=== PATIENT | male | born 1930 | race Caucasian/White ===

== ENCOUNTER 2017-01-22 13:43 | Inpatient (IN) | payer MEDICARE, BC ==
[2017-01-22] MEDS ORDERED: SODIUM CHLORIDE 0.9% 500 ML IV STA (14:22)
[2017-01-22] MEDS ORDERED: LIDOCAINE URO-JET JELLY 2% 5 ML KIT URETHRAL ONE ×2 (14:25→15:10)
--- NOTE | 2017-01-22 14:27 | ED ---
General Adult HPI - General Chief complaint: Urogenital Stated complaint: Rectal bleeding Time Seen by Provider: 01/22/17 14:13 Source: patient Mode of arrival: ambulatory Limitations: no limitations - History of Present Illness Initial comments: This is a 86-year-old male presents emergency Department with chief complaint of rectal bleeding and hematuria. Patient states that he has been incontinent of urine on and off over the last few months and states that he does have an upcoming appointment with his urologist this week. Patient states that he has a history of prostate cancer with treatment with radiation no surgery. Patient states he has had some issues with this stream and flow in the past. Patient states though he's never been incontinent like this. He states that he can go when he feels that he's ago but he has constant on and off dribbling throughout the day. Patient states that he noticed that he now has hematuria and states he passed a large clot when he urinated. Patient also states that he has rectal bleeding at this time patient states she's had rectal bleeding the past secondary to hemorrhoids states she's having no pain at this time. Patient states she does take stool softener/laxative daily states his stool has been slightly mucousy. Patient denies any fever, chills, nausea, vomiting. Patient does have some of suprapubic discomfort. He denies any dizziness, fatigue, chest pain or shortness of breath - Related Data Home Medications Medication Instructions Recorded Confirmed Acetaminophen [Tylenol] 500 mg PO Q4-6H PRN 01/22/17 01/22/17 Allopurinol [Zyloprim] 300 mg PO DAILY 01/22/17 01/22/17 Docusate [Colace] 100 mg PO DAILY PRN 01/22/17 01/22/17 Losartan Potassium [Cozaar] 100 mg PO DAILY 01/22/17 01/22/17 Metoprolol Tartrate [Lopressor] 50 mg PO HS 01/22/17 01/22/17 Metoprolol Tartrate [Lopressor] 100 mg PO DAILY 01/22/17 01/22/17 Naproxen Sodium [Aleve] 220 mg PO DAILY PRN 01/22/17 01/22/17 [place]-3 Fatty Acids/Fish Oil [Fish 1 cap PO DAILY 01/22/17 01/22/17 Oil 1,000 mg Capsule] Simvastatin [Zocor] 80 mg PO HS 01/22/17 01/22/17 Zolpidem [Ambien] 5 mg PO HS PRN 01/22/17 01/22/17 amLODIPine [Norvasc] 10 mg PO DAILY 01/22/17 01/22/17 Allergies Allergy/AdvReac Type Severity Reaction Status Date / Time Sulfa (Sulfonamide Allergy Rash/Hives Verified 01/22/17 15:00 Antibiotics) Review of Systems ROS Statement: Those systems with pertinent positive or pertinent negative responses have been documented in the HPI. ROS Other: All systems not noted in ROS Statement are negative. Past Medical History Past Medical History: Coronary Artery Disease (CAD), Hyperlipidemia, Hypertension Additional Past Medical History / Comment(s): GOUT History of Any Multi-Drug Resistant Organisms: None Reported Past Surgical History: Cardiac Valve Replacement, Joint Replacement Additional Past Surgical History / Comment(s): rt knee Past Psychological History: No Psychological Hx Reported Smoking Status: Never smoker Past Alcohol Use History: None Reported Past Drug Use History: None Reported General Exam Limitations: no limitations General appearance: alert, in no apparent distress Respiratory exam: Present: normal lung sounds bilaterally. Absent: respiratory distress, wheezes, rales, rhonchi, stridor Cardiovascular Exam: Present: regular rate, normal rhythm, normal heart sounds. Absent: systolic murmur, diastolic murmur, rubs, gallop, clicks GI/Abdominal exam: Present: soft, tenderness (Mild suprapubic tenderness), normal bowel sounds. Absent: distended, guarding, rebound, rigid Rectal exam: Present: heme (+) stool, bloody stool. Absent: hemorrhoids, tenderness Back exam: Absent: CVA tenderness (R), CVA tenderness (L) Neurological exam: Present: alert, oriented X3, CN II-XII intact Skin exam: Present: warm, dry, intact, normal color. Absent: rash Course Vital Signs 01/22/17 01/22/17 01/22/17 13:59 14:54 16:24 Temperature 97.9 F 97.5 F L Pulse Rate 92 83 75 Respiratory 20 18 18 Rate Blood Pressure 111/63 124/65 124/74 O2 Sat by Pulse 98 98 100 Oximetry Medical Decision Making - Lab Data Result diagrams: 01/22/17 14:35 01/22/17 14:35 Lab Results 01/22/17 01/22/17 01/22/17 Range/Units 14:35 14:35 14:35 WBC 8.8 (3.8-10.6) k/uL RBC 4.18 L (4.30-5.90) m/uL Hgb 12.8 L (13.0-17.5) gm/dL Hct 41.4 (39.0-53.0) % MCV 99.0 (80.0-100.0) fL MCH 30.7 (25.0-35.0) pg MCHC 31.0 (31.0-37.0) g/dL RDW 14.0 (11.5-15.5) % Plt Count 231 (150-450) k/uL Neutrophils % 68 % Lymphocytes % 18 % Monocytes % 9 % Eosinophils % 2 % Basophils % 1 % Neutrophils # 6.0 (1.3-7.7) k/uL Lymphocytes # 1.6 (1.0-4.8) k/uL Monocytes # 0.8 (0-1.0) k/uL Eosinophils # 0.2 (0-0.7) k/uL Basophils # 0.0 (0-0.2) k/uL Hypochromasia Slight PT (9.0-12.0) sec INR (<1.1) APTT (22.0-30.0) sec Sodium 141 (137-145) mmol/L Potassium 5.3 H (3.5-5.1) mmol/L Chloride 109 H (98-107) mmol/L Carbon Dioxide 17 L (22-30) mmol/L Anion Gap 15 mmol/L BUN 58 H (9-20) mg/dL Creatinine 4.17 H (0.66-1.25) mg/dL Est GFR (MDRD) Af Amer 17 (>60 ml/min/1.73 sqM) Est GFR (MDRD) Non-Af 14 (>60 ml/min/1.73 sqM) Glucose 113 H (74-99) mg/dL Calcium 9.7 (8.4-10.2) mg/dL Magnesium 2.5 H (1.6-2.3) mg/dL Total Bilirubin 0.9 (0.2-1.3) mg/dL AST 20 (17-59) U/L ALT 24 (21-72) U/L Alkaline Phosphatase 114 (38-126) U/L Total Creatine Kinase 98 (55-170) U/L CK-MB (CK-2) 2.2 (0.0-2.4) ng/mL CK-MB (CK-2) Rel Index 2.2 Troponin I 0.028 (0.000-0.034) ng/mL Total Protein 8.0 (6.3-8.2) g/dL Albumin 4.2 (3.5-5.0) g/dL Lipase 666 H (23-300) U/L Urine Color Urine Appearance (Clear) Urine pH (5.0-8.0) Ur Specific [place] (1.001-1.035) Urine Protein (Negative) Urine Glucose (UA) (Negative) Urine Ketones (Negative) Urine Blood (Negative) Urine Nitrite (Negative) Urine Bilirubin (Negative) Urine Urobilinogen (<2.0) mg/dL Ur Leukocyte Esterase (Negative) Urine RBC (0-5) /hpf Urine WBC (0-5) /hpf Urine WBC Clumps (None) /hpf Stool Occult Blood (Negative) Blood Type Blood Type Recheck Antibody Screen Spec Expiration Date 01/22/17 01/22/17 01/22/17 Range/Units 14:35 14:35 14:35 WBC (3.8-10.6) k/uL RBC (4.30-5.90) m/uL Hgb (13.0-17.5) gm/dL Hct (39.0-53.0) % MCV (80.0-100.0) fL MCH (25.0-35.0) pg MCHC (31.0-37.0) g/dL RDW (11.5-15.5) % Plt Count (150-450) k/uL Neutrophils % % Lymphocytes % % Monocytes % % Eosinophils % % Basophils % % Neutrophils # (1.3-7.7) k/uL Lymphocytes # (1.0-4.8) k/uL Monocytes # (0-1.0) k/uL Eosinophils # (0-0.7) k/uL Basophils # (0-0.2) k/uL Hypochromasia PT 11.2 (9.0-12.0) sec INR 1.1 (<1.1) APTT 23.5 (22.0-30.0) sec Sodium (137-145) mmol/L Potassium (3.5-5.1) mmol/L Chloride (98-107) mmol/L Carbon Dioxide (22-30) mmol/L Anion Gap mmol/L BUN (9-20) mg/dL Creatinine (0.66-1.25) mg/dL Est GFR (MDRD) Af Amer (>60 ml/min/1.73 sqM) Est GFR (MDRD) Non-Af (>60 ml/min/1.73 sqM) Glucose (74-99) mg/dL Calcium (8.4-10.2) mg/dL Magnesium (1.6-2.3) mg/dL Total Bilirubin (0.2-1.3) mg/dL AST (17-59) U/L ALT (21-72) U/L Alkaline Phosphatase (38-126) U/L Total Creatine Kinase (55-170) U/L CK-MB (CK-2) (0.0-2.4) ng/mL CK-MB (CK-2) Rel Index Troponin I (0.000-0.034) ng/mL Total Protein (6.3-8.2) g/dL Albumin (3.5-5.0) g/dL Lipase (23-300) U/L Urine Color Urine Appearance (Clear) Urine pH (5.0-8.0) Ur Specific [place] (1.001-1.035) Urine Protein (Negative) Urine Glucose (UA) (Negative) Urine Ketones (Negative) Urine Blood (Negative) Urine Nitrite (Negative) Urine Bilirubin (Negative) Urine Urobilinogen (<2.0) mg/dL Ur Leukocyte Esterase (Negative) Urine RBC (0-5) /hpf Urine WBC (0-5) /hpf Urine WBC Clumps (None) /hpf Stool Occult Blood Positive (Negative) Blood Type A Positive Blood Type Recheck A Pos Antibody Screen NEGATIVE Spec Expiration Date 01/25/2017233401/22/17 Range/Units 15:30 WBC (3.8-10.6) k/uL RBC (4.30-5.90) m/uL Hgb (13.0-17.5) gm/dL Hct (39.0-53.0) % MCV (80.0-100.0) fL MCH (25.0-35.0) pg MCHC (31.0-37.0) g/dL RDW (11.5-15.5) % Plt Count (150-450) k/uL Neutrophils % % Lymphocytes % % Monocytes % % Eosinophils % % Basophils % % Neutrophils # (1.3-7.7) k/uL Lymphocytes # (1.0-4.8) k/uL Monocytes # (0-1.0) k/uL Eosinophils # (0-0.7) k/uL Basophils # (0-0.2) k/uL Hypochromasia PT (9.0-12.0) sec INR (<1.1) APTT (22.0-30.0) sec Sodium (137-145) mmol/L Potassium (3.5-5.1) mmol/L Chloride (98-107) mmol/L Carbon Dioxide (22-30) mmol/L Anion Gap mmol/L BUN (9-20) mg/dL Creatinine (0.66-1.25) mg/dL Est GFR (MDRD) Af Amer (>60 ml/min/1.73 sqM) Est GFR (MDRD) Non-Af (>60 ml/min/1.73 sqM) Glucose (74-99) mg/dL Calcium (8.4-10.2) mg/dL Magnesium (1.6-2.3) mg/dL Total Bilirubin (0.2-1.3) mg/dL AST (17-59) U/L ALT (21-72) U/L Alkaline Phosphatase (38-126) U/L Total Creatine Kinase (55-170) U/L CK-MB (CK-2) (0.0-2.4) ng/mL CK-MB (CK-2) Rel Index Troponin I (0.000-0.034) ng/mL Total Protein (6.3-8.2) g/dL Albumin (3.5-5.0) g/dL Lipase (23-300) U/L Urine Color Red Urine Appearance Turbid (Clear) Urine pH 7.5 (5.0-8.0) Ur Specific [place] 1.015 (1.001-1.035) Urine Protein 2+ H (Negative) Urine Glucose (UA) Negative (Negative) Urine Ketones Negative (Negative) Urine Blood Large H (Negative) Urine Nitrite Negative (Negative) Urine Bilirubin Negative (Negative) Urine Urobilinogen <2.0 (<2.0) mg/dL Ur Leukocyte Esterase Large H (Negative) Urine RBC >182 H (0-5) /hpf Urine WBC >182 H (0-5) /hpf Urine WBC Clumps Many H (None) /hpf Stool Occult Blood (Negative) Blood Type Blood Type Recheck Antibody Screen Spec Expiration Date Disposition Clinical Impression: UTI (urinary tract infection), Rectal bleeding, Renal failure, Acute pancreatitis, Dehydration Disposition: ADMITTED IP TO THIS HOSP Condition: Fair Referrals: Sharan Sims DO [Primary Care Provider] - 1-2 days
[2017-01-22 15:14] LABS: Basophils % (A) 1 %; CH 30.5; Eosinophils # (A) 0.2 k/uL (0-0.7); Eosinophils % (A) 2 %; HCT 41.4 % (39.0-53.0); HDW 2.31; HGB 12.8 gm/dL (13.0-17.5); Hypochromasia Slight; Luc # (Auto) 0.22; Luc % (Auto) 3; Lymphocytes # (A) 1.6 k/uL (1.0-4.8); Lymphocytes % (A) 18 %; MCH 30.7 pg (25.0-35.0); Mean Platelet Volume 7.6; Monocytes # (A) 0.8 k/uL (0-1.0); Monocytes % (A) 9 %; Neutrophils % (A) 68 %; RBC 4.18 m/uL (4.30-5.90); WBC 8.8 k/uL (3.8-10.6); WBC (Perox) 8.95
[2017-01-22 15:18] LABS: INR 1.1 (<1.1); Partial Thromboplastin Time 23.5 sec (22.0-30.0); Prothrombin Time 11.2 sec (9.0-12.0)
[2017-01-22 15:19] LABS: Calcium 9.7 mg/dL (8.4-10.2); Magnesium 2.5 mg/dL (1.6-2.3); Potassium 5.3 mmol/L (3.5-5.1); Total Bilirubin 0.9 mg/dL (0.2-1.3)
[2017-01-22 15:43] LABS: Creatine Kinase MB 2.2 ng/mL (0.0-2.4); Troponin I 0.028 ng/mL (0.000-0.034)
[2017-01-22 15:57] LABS: Appearance,Urine Turbid (Clear); Bilirubin,Urine Negative (Negative); Glucose,Urine (UA) Negative (Negative); Ketones,Urine Negative (Negative); Leukocyte Esterase,Urine Large (Negative); Nitrite,Urine Negative (Negative); PH, Urine 7.5 (5.0-8.0); Particle Count 68063; Protein,Urine 2+ (Negative); RBC,Urine >182 /hpf (0-5); Specific Gravity,Urine 1.015 (1.001-1.035); UA Billing (MACRO vs. MICRO) MICRO; Urobilinogen,Urine <2.0 mg/dL (<2.0); WBC,Urine >182 /hpf (0-5)
[2017-01-22] MEDS ORDERED: ONDANSETRON 4 MG/2 ML VIAL IVP PRN (16:40)
[2017-01-22] MEDS ORDERED: NALOXONE 0.4 MG/ML 1 ML VIAL IV PRN (16:40)
[2017-01-22] MEDS: SODIUM CHLORIDE 0.9% 1,000 ML IV SCH (16:58)
[2017-01-22 18:33] VITALS: BMI 23.3
[2017-01-22] MEDS ORDERED: ACETAMINOPHEN TAB 500 MG TAB PO PRN (18:37)
[2017-01-22] MEDS ORDERED: DOCUSATE 100 MG CAP PO PRN (18:37)
[2017-01-22] MEDS ORDERED: ALPRAZolam 0.25 MG TAB PO PRN (18:39)
--- NOTE | 2017-01-22 18:52 | XR ---
EXAMINATION TYPE: XR chest 1V portable DATE OF EXAM: 01/22/2017 COMPARISON: NONE HISTORY: Heart failure TECHNIQUE: Single frontal view of the chest is obtained. FINDINGS: Heart size is normal. Thoracic aorta is atheromatous. There are are sternal wires. There i s no heart failure. I see no definite pleural effusion. There are no hilar masses. Bony thorax appear s intact. IMPRESSION: Atheromatous aorta. No active cardiopulmonary disease. Minimal pulmonary fibrotic change s. No heart failure seen.
--- NOTE | 2017-01-22 19:38 | CT ---
EXAMINATION TYPE: CT abdomen pelvis wo con DATE OF EXAM: 01/22/2017 COMPARISON: 01/13/2014 HISTORY: Rectal bleeding and hematuria. CT DLP: 532.2 mGycm Automated exposure control for dose reduction was used. TECHNIQUE: Helical acquisition of images was performed from the lung bases through the pelvis. FINDINGS: There is patchy linear density at the lung bases consistent with scarring and atelectasis. There is n o pleural effusion. Heart appears enlarged. Liver shows no focal defect. Gallbladder appears normal. Spleen appears normal. There is vascular calcification. There is no sign of pancreatic mass. There is no adrenal mass. There is a 3 cm cortical cyst on the anterior right kidney. There is no hyd ronephrosis. There is a calcification in the interpolar left kidney that is probably vascular. Ureter s are not dilated. Abdominal aorta is atheromatous. There is no evidence of an aortic aneurysm. There is distended urinary bladder with mild bladder wall thickening. There is no ascites. I see no intest inal wall thickening. There are no dilated loops. There is no sign of appendicitis. There is multilev el spondylosis in the lumbar spine with dextroscoliosis. IMPRESSION: ATHEROSCLEROTIC VASCULAR DISEASE. CARDIOMEGALY. FIBROTIC CHANGES AT THE LUNG BASES. LARGE URINARY BLADDER WITH MILD BLADDER WALL THICKENING CONSISTENT WITH SOME DEGREE OF BLADDER OUTLET OBSTRUCTION AND BLADDER WALL HYPERTROPHY. NO ADVERSE CHANGE COMPARED TO THE CT SCAN OF THE ABDOMEN OF 01/13/2014. MODERATE MULTILEVEL SPONDYLOSI S IN THE LUMBAR SPINE.
[2017-01-22] MEDS: ATORVASTATIN 40 MG TAB PO SCH (20:54)
[2017-01-22] MEDS: METOPROLOL TARTRATE 50 MG TAB PO SCH (20:54)
[2017-01-22] MEDS ORDERED: TEMAZEPAM 15 MG CAP PO PRN (21:00)
[2017-01-22] MEDS: TEMAZEPAM 15 MG CAP PO PRN (23:30)
[2017-01-23 06:55] LABS: Basophils % (A) 0 %; CH 30.2; CHCM 31.1; Eosinophils # (A) 0.2 k/uL (0-0.7); Eosinophils % (A) 3 %; HCT 40.4 % (39.0-53.0); HDW 2.32; HGB 13.2 gm/dL (13.0-17.5); Hypochromasia Slight; Luc # (Auto) 0.28; Luc % (Auto) 4; Lymphocytes # (A) 1.5 k/uL (1.0-4.8); Lymphocytes % (A) 21 %; MCH 31.8 pg (25.0-35.0); MCHC 32.6 g/dL (31.0-37.0); MCV 97.8 fL (80.0-100.0); Mean Platelet Volume 7.2; Monocytes # (A) 0.7 k/uL (0-1.0); Monocytes % (A) 10 %; Neutrophils # (A) 4.2 k/uL (1.3-7.7); Neutrophils % (A) 61 %; RBC 4.13 m/uL (4.30-5.90); RDW 13.9 % (11.5-15.5); WBC 6.8 k/uL (3.8-10.6); WBC (Perox) 7.44
[2017-01-23 07:10] LABS: Calcium 9.5 mg/dL (8.4-10.2)
[2017-01-23] MEDS: PANTOPRAZOLE 40 MG TABLET PO SCH (07:23)
[2017-01-23] MEDS: METOPROLOL TARTRATE 50 MG TAB PO SCH ×2 (07:24→21:48)
[2017-01-23] MEDS: SODIUM CHLORIDE 0.9% 1,000 ML IV SCH ×2 (07:39→15:24)
--- NOTE | 2017-01-23 07:52 | HP ---
DATE OF ADMISSION: CHIEF COMPLAINT: Hematuria, weakness, dehydration. HISTORY OF PRESENT ILLNESS: This 86-year-old gentleman with a past medical history of multiple medical problems including history of coronary artery disease, hypertension, hyperlipidemia, history of gout, history of prostate cancer, history of cardiac valve replacement, history of degenerative joint disease being followed by [facility] and Dr. Sims in the outpatient setting was not feeling well over the past several days. Patient apparently had hematuria earlier and the patient was trying to get to Urology. Patient apparently also noted to have some blood in the stools and the patient also had complaints of incontinence, weakness. The patient also found to pass a large clot while urinating. The patient's p.o. intake was diminishing and patient came to [facility] and was admitted for further evaluation and treatment. Creatinine was found to be 4.17 indicating acute renal failure. The patient also has elevated lipase even though the patient did not have any abdominal pain. The patient also had evidence of UTI also. There is no history of any fever, rigors, chills, headache, loss of consciousness, seizures. PAST MEDICAL HISTORY: History of CAD, hypertension, hyperlipidemia, gout, prostate cancer, history of hematuria, history of cardiac valve replacement, appendectomy. Aortic valve surgery. Medications prior to admission include: 1. Ambien 5 mg q.6. 2. Zocor 81 mg q.h.s. 3. Fish oil 1 p.o. daily. 5. Colace 100 mg daily p.r.n. 6. Tylenol 500 mg q.4 to 6 p.r.n. 7. Norvasc 10 mg daily. 8. Lopressor 50 mg q.6. 9. Cozaar 100 mg p.o. daily. 10. Zyloprim 300 mg daily. ALLERGIES: SULFA. FAMILY HISTORY: No history of heart disease or strokes in the family. SOCIAL HISTORY: No history of smoking. No history of alcohol. REVIEW OF SYSTEMS: ENT: Diminished hearing. Diminished vision. CARDIOVASCULAR: As mentioned earlier. RESPIRATORY: As mentioned earlier. GI: As mentioned earlier. : As mentioned earlier. NERVOUS SYSTEM: No numbness or weakness. ALLERGY/IMMUNOLOGY: No asthma. MUSCULOSKELETAL: As mentioned earlier. HEMATOLOGY: As mentioned earlier. ENDOCRINE: : no history of diabetes or hypothyroidism. CONSTITUTIONAL: As mentioned earlier. DERMATOLOGY: Negative. RHEUMATOLOGY: Negative. PSYCHIATRY: As mentioned earlier. PHYSICAL EXAMINATION: Patient is alert and oriented x3. Pulse is 75, blood pressure 124/75, respirations 18, temperature 97.4, pulse ox 100% on room air. HEENT: Conjunctivae normal. Oral mucosa moist. NECK: NO jugular venous distention. No carotid bruit. No lymph node enlargement. CARDIOVASCULAR: S1 and S2, muffled. RESPIRATORY: Breath sounds diminished at the bases. A few scattered rhonchi, no crackles. ABDOMEN: Soft, nontender. No mass palpable. LEGS: No edema, no swelling. NERVOUS SYSTEM: Higher function as mentioned. Moves all four limbs. No focal motor deficits. LYMPHATIC: No lymphadenopathy in the neck, axillae or groin. SKIN: No ulcer, rash or bleeding. LABS: WBC 8.2, hemoglobin 12.8. Creatinine is 4.17. Lipase is 666. UA noted. Other labs noted. ASSESSMENT: 1. Acute renal failure, rule out postobstructive renal failure. 2. Hematuria for evaluation. 3. Possible dehydration and prerenal renal factors. 4. Increased lipase, rule out acute pancreatitis. 5. Hyperkalemia, mild. 6. Anemia, normocytic anemia of chronic disease. 7. History of aortic valve replacement. 8. History of coronary artery disease. 9. Hypertension. 10. Hyperlipidemia. 11. History of gout. 12. History of prostate cancer. 13. History of appendectomy. 14. History of degenerative joint disease. 15. History of prostate surgery. 16. Right knee surgery. 17. FULL CODE. RECOMMENDATIONS AND DISCUSSION: In this 86-year-old gentleman who presented with multiple complex medical issues, we will monitor the patient closely. I would carefully hydrate the patient. Obtain a CT scan of the abdomen and pelvis without any contrast for evaluation of the pancreas as well as rule out the possible postobstructive renal failure. Nephrology was consulted. Would continue to monitor. Guarded prognosis because of multiple complex medical issues. Further recommendations to follow. See orders for details. Empiric antibiotics initiated. Home medications continued. PT, OT evaluation. MTDD
[2017-01-23] MEDS ORDERED: amLODIPine 10 MG TAB PO SCH (09:00)
--- NOTE | 2017-01-23 11:37 | P.NPCON ---
History of Present Illness - Reason for Consult acute renal failure - History of Present Illness Reason for consultation: Acute kidney injury History of present illness: Patient is a 86-year-old male seen in renal consultation for acute kidney injury. Unclear as to what his baseline renal function is. Creatinine was 4.17 on admission and is down to 3.3 today. He is currently maintained on IV fluids running at 75 mL an hour. Patient presented to the hospital with generalized weakness. He also noted hematuria as well as a blood clot in his urine. Patient states his appetite has been poor the last few days. He denies any vomiting or diarrhea. Patient does have a history of prostate cancer and follows with urology as an outpatient. He had an appointment scheduled for this Monday. CT of the abdomen and pelvis did not reveal any hydronephrosis. Patient does admit to taking Aleve as needed. States he took it about 5 times in the last 2 weeks. Denies chest pain or shortness of breath. Hemodynamically he's been stable. Blood pressures are on the lower side. Denies dizziness headaches or syncopal episodes. No fever or chills. Vital signs are stable. General: The patient appeared well nourished and normally developed. HEENT: Head exam is unremarkable. Neck is without jugular venous distension. LUNGS: Lungs are clear to auscultation and percussion. Breath sounds decreased. HEART: Rate and Rhythm are regular. First and second heart sounds normal. No murmurs, rubs or gallops. ABDOMEN: Abdominal exam reveals normal bowel sounds. Non-tender and non- distended. No evidence of peritonitis. EXTREMITITES: No clubbing, cyanosis, or edema. Past Medical History Past Medical History: Coronary Artery Disease (CAD), Hyperlipidemia, Hypertension Additional Past Medical History / Comment(s): GOUT, Prostate Cancer. 01/22 pt comes in with hematuria and blood in stool. History of Any Multi-Drug Resistant Organisms: None Reported Past Surgical History: Appendectomy, Cardiac Valve Replacement, Joint Replacement, Prostate Surgery Additional Past Surgical History / Comment(s): rt knee Past Anesthesia/Blood Transfusion Reactions: No Reported Reaction Past Psychological History: No Psychological Hx Reported Smoking Status: Never smoker Past Alcohol Use History: None Reported Additional Past Alcohol Use History / Comment(s): pt states he has a drink every 3-4 weeks. Past Drug Use History: None Reported - Past Family History Mother Family Medical History: No Reported History Medications and Allergies Home Medications Medication Instructions Recorded Confirmed Type Acetaminophen [Tylenol] 500 mg PO Q4-6H PRN 01/22/17 01/22/17 History Allopurinol [Zyloprim] 300 mg PO DAILY 01/22/17 01/22/17 History Docusate [Colace] 100 mg PO DAILY PRN 01/22/17 01/22/17 History Losartan Potassium [Cozaar] 100 mg PO DAILY 01/22/17 01/22/17 History Metoprolol Tartrate [Lopressor] 50 mg PO HS 01/22/17 01/22/17 History Metoprolol Tartrate [Lopressor] 100 mg PO DAILY 01/22/17 01/22/17 History Naproxen Sodium [Aleve] 220 mg PO DAILY PRN 01/22/17 01/22/17 History [place]-3 Fatty Acids/Fish Oil [Fish 1 cap PO DAILY 01/22/17 01/22/17 History Oil 1,000 mg Capsule] Simvastatin [Zocor] 80 mg PO HS 01/22/17 01/22/17 History Zolpidem [Ambien] 5 mg PO HS PRN 01/22/17 01/22/17 History amLODIPine [Norvasc] 10 mg PO DAILY 01/22/17 01/22/17 History Allergies Allergy/AdvReac Type Severity Reaction Status Date / Time Sulfa (Sulfonamide Allergy Rash/Hives Verified 01/22/17 15:00 Antibiotics) Physical Exam Vitals: Vital Signs Temp Pulse Pulse Resp BP BP Pulse Ox 01/23/17 07:00 97.7 F 87 16 114/61 97 01/22/17 23:00 97.4 F L 83 16 109/57 98 01/22/17 17:33 97.9 F 80 18 117/56 94 L 01/22/17 16:24 97.5 F L 75 18 124/74 100 01/22/17 14:54 83 18 124/65 98 01/22/17 13:59 97.9 F 92 20 111/63 98 Intake and Output 01/22/17 01/23/17 01/23/17 22:59 06:59 14:59 Intake Total 225 600 Balance 225 600 Intake: IV 225 600 Sodium Chloride 0.9% 1, 225 600 000 ml @ 75 mls/hr IV . [id number] [facility] Rx#:[id number] Other: Voiding Method Toilet Incontinent # Voids 2 2 Weight 75.75 kg 75.75 kg Patient Weight 01/24/17 06:59 Weight 75.75 kg Results - Lab Results Most recent lab results Calcium 9.5 mg/dL (8.4-10.2) 01/23/17 06:25 Magnesium 2.5 mg/dL (1.6-2.3) H 01/22/17 14:35 01/23/17 06:25 01/23/17 06:25 Assessment and Plan Plan: Assessment: #1. Nonoliguric acute kidney injury mostly prerenal in nature secondary to poor oral intake and use of NSAIDs and ARB. No evidence of hydronephrosis on CT of the abdomen/pelvis. Unclear as to what his baseline renal function is. Creatinine was 4.17 on admission and is down to 3.3 today with IV hydration. Rule out urinary retention. #2. Metabolic acidosis secondary to acute kidney injury and IV fluids. #3. Hematuria. This can be related to the UTI as well as a bladder wall thickening noted on CAT scan of the abdomen and pelvis. #4. Hypertension. Blood pressures are on the lower end. Plan: Continue normal saline to be run at 75 mL an hour. Start sodium bicarbonate 650 mg twice daily. Add Flomax. Check postvoid residual and to insert Marcus catheter if greater than 250 mL present. Recommend urology consultation. Follow-up urine culture. Avoid nephrotoxic agents and hypotensive episodes. Repeat electrolytes in the morning. Thank you for the consultation. I will continue to follow the patient with you during his hospital stay.
[2017-01-23] MEDS: SODIUM BICARBONATE TAB 650 MG TAB PO SCH ×2 (13:07→21:48)
[2017-01-23] MEDS: TAMSULOSIN 0.4 MG CAP.ER.24H PO SCH (13:08)
--- NOTE | 2017-01-23 18:54 | PN ---
DATE OF SERVICE: 01/23/2017 This 86-year-old gentleman who was admitted with acute renal failure also had hematuria. The patient had significant dehydration also. The patient also had abdomen and pelvis CT scan yesterday. The CAT scan showed atherosclerotic vascular disease, cardiomegaly, fibroids in the lung base, and large urinary bladder with mild bladder wall thickening consistent with some degree of bladder outlet obstruction and bladder wall hypertrophy, multilevel DJD was also noted. PAST MEDICAL HISTORY: Reviewed. REVIEW OF SYSTEMS: CARDIOVASCULAR: No angina. RESPIRATORY: As mentioned earlier. GI: As mentioned earlier. : As mentioned earlier. Current medications include: 1. Tylenol 500 q.4 p.r.n. 2. [place] 5 mg q.6. 3. Xanax 0.5 t.i.d. p.r.n. 4. Lipitor 40 mg. 5. Rocephin 1 gram IV daily. 6. Colace 100 mg daily p.r.n. 7. Lopressor 50 mg q.h.s. 8. Lopressor 100 mg p.o. daily. 9. Narcan 0.2 q.2 p.r.n. 10. Zofran 4 mg q.8 p.r.n. 11. Protonix 40 mg daily. 12. Sodium bicarb 650 p.o. b.i.d. 13. Flomax 0.4 daily. 14. Restoril 15 mg q.h.s. p.r.n. 15. Ambien 5 mg q.h.s. p.r.n. PHYSICAL EXAMINATION: Patient is alert and oriented x3. Pulse 83, blood pressure 199/57, respirations 16, temperature 97.4, pulse ox 98% on room air. HEENT: Conjunctivae normal. Oral mucosa moist. NECK: No jugular venous distention. No carotid bruit. No lymph node enlargement. CARDIOVASCULAR: S1 and S2, muffled. No S3, no S4. RESPIRATORY: Breath sounds diminished at the bases. A few scattered rhonchi, no crackles. ABDOMEN: Soft, nontender. No mass palpable. No guarding. no rigidity. LEGS: No edema. NERVOUS SYSTEM: Diffusely weak. LABS: WBC 6.7, hemoglobin 13.2, CO2 is 18. Creatinine is 3.30. Amylase 133, lipase 739, UA noted. ASSESSMENT: 1. Acute renal failure, possibly postobstructive renal failure with some prerenal factors. 2. Hematuria for evaluation rule out bladder outlet obstruction. 3. Urinary tract infection, possibly. 4. Dehydration with prerenal factors. 5. Increased lipase, amylase, possible acute mild pancreatitis. 6. Mild hyperkalemia. 7. Anemia, normocytic anemia of chronic disease. 8. History of aortic valve replacement. 9. History of coronary artery disease. 10. History of essential hypertension. 11. History of hyperlipidemia. 12. History of gout. 13. History of prostate cancer. 14. History of appendectomy. 15. History of degenerative joint disease. 16. History of prostate surgery. 17. History of right knee surgery. 18. FULL CODE. RECOMMENDATIONS AND DISCUSSION: I recommend to continue the current medications, continue monitoring and symptomatic treatment. Continue with the broad-spectrum IV antibiotics. Careful hydration. Nephrology has been consulted. Further recommendations to follow. See orders for further details. Prognosis guarded.
[2017-01-23] MEDS: ATORVASTATIN 40 MG TAB PO SCH (21:48)
[2017-01-23] MEDS: ZOLPIDEM 5 MG TAB PO PRN (22:42)
[2017-01-24 07:25] LABS: Basophils % (A) 1 %; CH 30.5; CHCM 31.1; Eosinophils # (A) 0.3 k/uL (0-0.7); Eosinophils % (A) 6 %; HCT 36.4 % (39.0-53.0); HDW 2.28; HGB 11.7 gm/dL (13.0-17.5); Luc # (Auto) 0.21; Luc % (Auto) 4; Lymphocytes # (A) 1.4 k/uL (1.0-4.8); Lymphocytes % (A) 26 %; MCH 31.8 pg (25.0-35.0); MCHC 32.3 g/dL (31.0-37.0); MCV 98.6 fL (80.0-100.0); Mean Platelet Volume 7.2; Monocytes # (A) 0.5 k/uL (0-1.0); Monocytes % (A) 9 %; Neutrophils # (A) 2.9 k/uL (1.3-7.7); Neutrophils % (A) 54 %; RBC 3.68 m/uL (4.30-5.90); RDW 14.1 % (11.5-15.5); WBC 5.3 k/uL (3.8-10.6); WBC (Perox) 5.61
[2017-01-24 07:45] LABS: Potassium 4.5 mmol/L (3.5-5.1)
[2017-01-24] MEDS: TAMSULOSIN 0.4 MG CAP.ER.24H PO SCH (07:45)
[2017-01-24] MEDS: SODIUM BICARBONATE TAB 650 MG TAB PO SCH ×2 (07:45→20:58)
[2017-01-24] MEDS: PANTOPRAZOLE 40 MG TABLET PO SCH (07:45)
[2017-01-24] MEDS: METOPROLOL TARTRATE 50 MG TAB PO SCH ×2 (07:45→20:58)
[2017-01-24] MEDS: SODIUM CHLORIDE 0.9% 1,000 ML IV SCH (07:46)
[2017-01-24] MEDS ORDERED: LIDOCAINE URO-JET JELLY 2% 5 ML KIT URETHRAL STA (09:05)
[2017-01-24] MEDS ORDERED: FUROSEMIDE 10 MG/ML 2 ML VIAL IV STA (10:14)
--- NOTE | 2017-01-24 10:17 | P.PCN ---
Date of Procedure: 01/24/17 Preoperative Diagnosis: Urethral Stricture, Urinary Retention Postoperative Diagnosis: Same Procedure(s) Performed: Urethral Dilation, Marcus Catheter Insertion Implants: Anesthesia: local Surgeon: Orlando Pro Estimated Blood Loss (ml): 10 Pathology: none sent Condition: stable Disposition: PACU Indications for Procedure: The patient is an 86-year-old white male with known urethral stricture disease. A computed tomography scan suggested the presence of urinary retention. Attempts by the nursing staff to place a Marcus catheter were unsuccessful. Operative Findings: Bulbous urethral stricture, successfully dilated. Description of Procedure: The patient is lying supine in his hospital bed. The external genitalia was prepped and draped sterilely. 2% lidocaine jelly was administered intraurethrally. A 3-[place] spiral tip filiform was then passed through the urethra and into the bladder. Successive followers were utilized to dilate the urethra to 20-[place]. With some difficulty, a 16-[place] Marcus catheter was then placed. The return was initially jose r in color, but turned bright red. Approximately 475 mL of urine drained. The Marcus catheter was then irrigated. Several small clots were removed. The bladder was verified to be empty. The catheter was connected to gravity drainage.
[2017-01-24] MEDS: HYDROcodone/APAP 5-325MG 1 EACH TAB PO PRN ×2 (10:18→15:35)
--- NOTE | 2017-01-24 10:19 | P.GSCN ---
History of Present Illness Consult date: 01/24/17 Reason for Consult: Urinary Retention Requesting physician: Ari Gasca History of present illness: The patient is an 86-year-old white male well known to me. He has a history of urethral stricture disease, for which he has undergone urethral dilation on multiple occasions, most recently in 2004. He was diagnosed with clinical stage [id number] prostate cancer in late 1999. His PSA level at that time was 17.40. He was treated with androgen deprivation therapy (x 9 months) plus radiation therapy. He has not been seen since 2004. He is now admitted with a three-week history of gross hematuria. He reports minimal dysuria, which she has experienced since he received radiation therapy. He has also recently experienced urinary incontinence. He states that his most recent PSA level was 0.1. Review of Systems - Respiratory Denies dyspnea - Gastrointestinal Gastrointestinal Comment(s): Rectal bleeding - Genitourinary Reports dysuria, Reports hematuria, Reports incontinence Past Medical History Past Medical History: Coronary Artery Disease (CAD), Hyperlipidemia, Hypertension Additional Past Medical History / Comment(s): GOUT, Prostate Cancer. 01/22 pt comes in with hematuria and blood in stool. History of Any Multi-Drug Resistant Organisms: None Reported Past Surgical History: Appendectomy, Cardiac Valve Replacement, Joint Replacement, Prostate Surgery Additional Past Surgical History / Comment(s): rt knee Past Anesthesia/Blood Transfusion Reactions: No Reported Reaction Past Psychological History: No Psychological Hx Reported Smoking Status: Never smoker Past Alcohol Use History: None Reported Additional Past Alcohol Use History / Comment(s): pt states he has a drink every 3-4 weeks. Past Drug Use History: None Reported - Past Family History Mother Family Medical History: No Reported History Medications and Allergies Home Medications Medication Instructions Recorded Confirmed Type Acetaminophen [Tylenol] 500 mg PO Q4-6H PRN 01/22/17 01/22/17 History Allopurinol [Zyloprim] 300 mg PO DAILY 01/22/17 01/22/17 History Docusate [Colace] 100 mg PO DAILY PRN 01/22/17 01/22/17 History Losartan Potassium [Cozaar] 100 mg PO DAILY 01/22/17 01/22/17 History Metoprolol Tartrate [Lopressor] 50 mg PO HS 01/22/17 01/22/17 History Metoprolol Tartrate [Lopressor] 100 mg PO DAILY 01/22/17 01/22/17 History Naproxen Sodium [Aleve] 220 mg PO DAILY PRN 01/22/17 01/22/17 History [place]-3 Fatty Acids/Fish Oil [Fish 1 cap PO DAILY 01/22/17 01/22/17 History Oil 1,000 mg Capsule] Simvastatin [Zocor] 80 mg PO HS 01/22/17 01/22/17 History Zolpidem [Ambien] 5 mg PO HS PRN 01/22/17 01/22/17 History amLODIPine [Norvasc] 10 mg PO DAILY 01/22/17 01/22/17 History Allergies Allergy/AdvReac Type Severity Reaction Status Date / Time Sulfa (Sulfonamide Allergy Rash/Hives Verified 01/22/17 15:00 Antibiotics) Surgical - Exam Vital Signs Temp Pulse Resp BP Pulse Ox 97.9 F 92 20 111/63 98 01/22/17 13:59 01/22/17 13:59 01/22/17 13:59 01/22/17 13:59 01/22/17 13:59 - General well developed, well nourished, no distress - Abdomen Abdomen: soft, rigid, rebound, distended, non tender, tender, bowel sounds, organomegaly, surgical scars, wound, masses, guarding Hernia: none - Genitourinary normal penis with no external lesions, testicles non-tender - Rectum Rectum: normal sphincter tone, no masses, no bleeding, other (prostate firm, flat, smooth) - Neurologic no disoriented, no combative - Psychiatric oriented to time, oriented to person, oriented to place, speech is normal, memory intact Results - Labs 01/24/17 06:48 01/24/17 06:48 Abnormal Lab Results - Last 24 Hours (Table) 01/23/17 01/23/17 Range/Units 06:25 06:25 RBC 4.13 L (4.30-5.90) m/uL Chloride 111 H (98-107) mmol/L Carbon Dioxide 18 L (22-30) mmol/L BUN 46 H (9-20) mg/dL Creatinine 3.30 H (0.66-1.25) mg/dL Glucose 101 H (74-99) mg/dL Amylase 163 H (30-110) U/L Lipase 739 H (23-300) U/L Microbiology - Last 24 Hours (Table) 01/22/17 15:30 Urine Culture - Final Urine,Voided Aerococcus urinae Diabetes panel 01/23/17 Range/Units 06:25 Sodium 141 (137-145) mmol/L Potassium 5.0 (3.5-5.1) mmol/L Chloride 111 H (98-107) mmol/L Carbon Dioxide 18 L (22-30) mmol/L BUN 46 H (9-20) mg/dL Creatinine 3.30 H (0.66-1.25) mg/dL Glucose 101 H (74-99) mg/dL Calcium 9.5 (8.4-10.2) mg/dL Calcium panel 01/23/17 Range/Units 06:25 Calcium 9.5 (8.4-10.2) mg/dL Pituitary panel 01/23/17 Range/Units 06:25 Sodium 141 (137-145) mmol/L Potassium 5.0 (3.5-5.1) mmol/L Chloride 111 H (98-107) mmol/L Carbon Dioxide 18 L (22-30) mmol/L BUN 46 H (9-20) mg/dL Creatinine 3.30 H (0.66-1.25) mg/dL Glucose 101 H (74-99) mg/dL Calcium 9.5 (8.4-10.2) mg/dL Adrenal panel 01/23/17 Range/Units 06:25 Sodium 141 (137-145) mmol/L Potassium 5.0 (3.5-5.1) mmol/L Chloride 111 H (98-107) mmol/L Carbon Dioxide 18 L (22-30) mmol/L BUN 46 H (9-20) mg/dL Creatinine 3.30 H (0.66-1.25) mg/dL Glucose 101 H (74-99) mg/dL Calcium 9.5 (8.4-10.2) mg/dL - Imaging CT scan - abdomen: report reviewed, image reviewed Assessment and Plan (1) Gross hematuria Status: Acute (2) Urethral stricture, unspecified Status: Acute Plan: The urethral stricture was dilated, and a Marcus catheter was placed. Approximately 475 mL of urine was drained from the bladder, and the urine became bloody as the Marcus drained. Lasix was given to induce diuresis, and the catheter will be irrigated as needed. This is not unexpected following decompression of the bladder in the face of urinary retention. I anticipate that the urine will clear, in which case Mr. Larios can be discharged home with the Marcus catheter. The catheter will be removed later this week. Time with Patient: Greater than 30
--- NOTE | 2017-01-24 10:29 | P.PN ---
Subjective Patient is seen in follow-up for acute kidney injury. Unclear as to what his baseline renal function is. Creatinine was 4.17 on admission and is improving with IV fluids. It is down to 2.7 today. She is also noted to have hematuria and is being followed by urology. He had a Marcus catheter placed. He is nonoliguric. Oral intake is improving. No vomiting or diarrhea. Also noted to have a UTI. Urine culture positive for Aerococcus. Vital signs are stable. General: The patient appeared well nourished and normally developed. HEENT: Head exam is unremarkable. Neck is without jugular venous distension. LUNGS: Lungs are clear to auscultation and percussion. Breath sounds decreased. HEART: Rate and Rhythm are regular. First and second heart sounds normal. No murmurs, rubs or gallops. ABDOMEN: Abdominal exam reveals normal bowel sounds. Non-tender and non- distended. No evidence of peritonitis. EXTREMITITES: No clubbing, cyanosis, or edema. Objective - Vital Signs Vital signs: Vital Signs Temp 97.4 F L 01/24/17 07:00 Pulse 86 01/24/17 07:51 Resp 16 01/24/17 07:51 BP 120/75 01/24/17 07:00 Pulse Ox 98 01/24/17 07:00 Intake & Output 01/23/17 01/24/17 01/24/17 18:59 06:59 18:59 Intake Total 1430 765 Output Total 6 Balance 1424 765 Weight 75.75 kg Intake: IV 650 Sodium Chloride 0.9% 1, 650 000 ml @ 75 mls/hr IV . [id number] [facility] Rx#:[id number] Intake, IV Titration 100 525 Amount Sodium Chloride 0.9% 1, 525 000 ml @ 75 mls/hr IV . [id number] [facility] Rx#:[id number] cefTRIAXone 1,000 mg In 100 Sodium Chloride 0.9% 50 ml @ 100 mls/hr IVPB Q24HR [facility] Rx#:[id number] Oral 680 240 Output: Stool 6 Other: Voiding Method Toilet Toilet Toilet Incontinent Incontinent Incontinent # Voids 2 1 2 # Bowel Movements 1 - Labs CBC & Chem 7: 01/24/17 06:48 01/24/17 06:48 Labs: Abnormal Lab Results - Last 24 Hours (Table) 01/24/17 01/24/17 Range/Units 06:48 06:48 RBC 3.68 L (4.30-5.90) m/uL Hgb 11.7 L (13.0-17.5) gm/dL Hct 36.4 L (39.0-53.0) % Chloride 112 H (98-107) mmol/L Carbon Dioxide 17 L (22-30) mmol/L BUN 38 H (9-20) mg/dL Creatinine 2.70 H (0.66-1.25) mg/dL Glucose 101 H (74-99) mg/dL Microbiology - Last 24 Hours (Table) 01/22/17 15:30 Urine Culture - Final Urine,Voided Aerococcus urinae Assessment and Plan Plan: Assessment: #1. Nonoliguric acute kidney injury mostly prerenal in nature secondary to poor oral intake and use of NSAIDs and ARB. Also component of urinary retention. No evidence of hydronephrosis on CT of the abdomen/pelvis. Unclear as to what his baseline renal function is. Creatinine was 4.17 on admission and is down to 2.7 today with IV hydration. #2. Metabolic acidosis secondary to acute kidney injury and IV fluids. #3. Hematuria. This can be related to the UTI as well as a bladder wall thickening noted on CAT scan of the abdomen and pelvis. #4. Hypertension. Blood pressures are on the lower end. Better today. #5. Urinary retention status post Marcus catheter placement. Urology following. #6. UTI with urine culture positive for Aerococcus maintained on IV Rocephin. Plan: Continue normal saline to be run at 75 mL an hour. Increase dose ofdium bicarbonate to 1300 mg mg twice daily. Continue Flomax. Avoid nephrotoxic agents and hypotensive episodes. Repeat electrolytes in the morning.
[2017-01-24] MEDS ORDERED: HYDROmorphone 1 MG/ML 1 ML SYRINGE IVP PRN (11:12)
[2017-01-24] MEDS: ATORVASTATIN 40 MG TAB PO SCH (20:58)
[2017-01-24] MEDS: ZOLPIDEM 5 MG TAB PO PRN (22:51)
[2017-01-25 07:23] LABS: Basophils % (A) 0 %; CH 30.7; CHCM 31.9; Eosinophils # (A) 0.2 k/uL (0-0.7); Eosinophils % (A) 3 %; HCT 34.2 % (39.0-53.0); HGB 11.1 gm/dL (13.0-17.5); Luc # (Auto) 0.14; Luc % (Auto) 2; Lymphocytes # (A) 1.2 k/uL (1.0-4.8); Lymphocytes % (A) 15 %; MCH 31.4 pg (25.0-35.0); MCHC 32.5 g/dL (31.0-37.0); MCV 96.7 fL (80.0-100.0); Mean Platelet Volume 7.7; Monocytes # (A) 0.5 k/uL (0-1.0); Monocytes % (A) 7 %; Neutrophils # (A) 5.9 k/uL (1.3-7.7); Neutrophils % (A) 73 %; RBC 3.54 m/uL (4.30-5.90); RDW 14.1 % (11.5-15.5); WBC 8.1 k/uL (3.8-10.6); WBC (Perox) 8.41
[2017-01-25 07:39] LABS: Calcium 9.5 mg/dL (8.4-10.2); Potassium 4.4 mmol/L (3.5-5.1)
[2017-01-25] MEDS: PANTOPRAZOLE 40 MG TABLET PO SCH (08:52)
[2017-01-25] MEDS: SODIUM CHLORIDE 0.9% 1,000 ML IV SCH ×2 (08:52→13:04)
[2017-01-25] MEDS: TAMSULOSIN 0.4 MG CAP.ER.24H PO SCH (08:52)
[2017-01-25] MEDS: SODIUM BICARBONATE TAB 650 MG TAB PO SCH ×2 (08:53→20:18)
[2017-01-25] MEDS: METOPROLOL TARTRATE 50 MG TAB PO SCH ×2 (08:53→20:17)
--- NOTE | 2017-01-25 09:57 | P.PN ---
Subjective Patient is seen in follow-up for acute kidney injury. Unclear as to what his baseline renal function is. Creatinine was 4.17 on admission and is improving with IV fluids. It is down to 2.16 today. She is also noted to have hematuria and is being followed by urology. He had a Marcus catheter placed and was removed this morning. He is nonoliguric. Oral intake is improving. No vomiting or diarrhea. Also noted to have a UTI. Urine culture positive for Aerococcus. Denies chest pain or shortness of breath. Vital signs are stable. General: The patient appeared well nourished and normally developed. HEENT: Head exam is unremarkable. Neck is without jugular venous distension. LUNGS: Lungs are clear to auscultation and percussion. Breath sounds decreased. HEART: Rate and Rhythm are regular. First and second heart sounds normal. No murmurs, rubs or gallops. ABDOMEN: Abdominal exam reveals normal bowel sounds. Non-tender and non- distended. No evidence of peritonitis. EXTREMITITES: No clubbing, cyanosis, or edema. Objective - Vital Signs Vital signs: Vital Signs Temp 97.5 F L 01/25/17 07:00 Pulse 84 01/25/17 07:00 Resp 18 01/25/17 07:00 BP 112/60 01/25/17 07:00 Pulse Ox 97 01/25/17 07:00 Intake & Output 01/24/17 01/25/17 01/25/17 18:59 06:59 18:59 Intake Total 240 900 Output Total 1202 1550 300 Balance -962 -650 -300 Intake: IV 900 Sodium Chloride 0.9% 1, 900 000 ml @ 75 mls/hr IV . [id number] [facility] Rx#:[id number] Oral 240 Output: Urine 1200 1550 300 Uretheral (Marcus) 250 300 Stool 2 Other: Voiding Method Toilet Indwelling Catheter Incontinent # Voids 3 # Bowel Movements 1 - Labs CBC & Chem 7: 01/25/17 06:53 01/25/17 06:53 Labs: Abnormal Lab Results - Last 24 Hours (Table) 01/25/17 01/25/17 Range/Units 06:53 06:53 RBC 3.54 L (4.30-5.90) m/uL Hgb 11.1 L (13.0-17.5) gm/dL Hct 34.2 L (39.0-53.0) % Chloride 111 H (98-107) mmol/L Carbon Dioxide 18 L (22-30) mmol/L BUN 31 H (9-20) mg/dL Creatinine 2.16 H (0.66-1.25) mg/dL Glucose 111 H (74-99) mg/dL Amylase 205 H (30-110) U/L Lipase 1140 H (23-300) U/L Assessment and Plan Plan: Assessment: #1. Nonoliguric acute kidney injury mostly prerenal in nature secondary to poor oral intake and use of NSAIDs and ARB. Also component of urinary retention. No evidence of hydronephrosis on CT of the abdomen/pelvis. Unclear as to what his baseline renal function is. Creatinine was 4.17 on admission and is down to 2.16 today with IV hydration. #2. Metabolic acidosis secondary to acute kidney injury and IV fluids. Improving. #3. Hematuria. This can be related to the UTI as well as a bladder wall thickening noted on CAT scan of the abdomen and pelvis. #4. Hypertension. Blood pressures are on the lower end. Better today. #5. Urinary retention status post Marcus catheter placement and removal. Urology following. #6. UTI with urine culture positive for Aerococcus maintained on IV Rocephin. Plan: Continue normal saline to be run at 75 mL an hour. Maintain oral sodium bicarbonate 1300 mg twice daily. Continue Flomax. Avoid nephrotoxic agents and hypotensive episodes. Repeat electrolytes in the morning.
--- NOTE | 2017-01-25 12:37 | P.PN ---
Progress Note - Text The Marcus catheter drained overnight, with irrigation yielding only several very small clots. The catheter was removed this morning, and he has been able to void once without difficulty. The Bladder Scan will be used to check post- void residuals, and the catheter will be replaced only if needed. Once he is verified to be emptying his bladder, he will be considered urologically stable for discharge. He should be discharged home on antibiotics for treatment of his Aerococcus UTI, and follow-up with me in 1-2 weeks.
[2017-01-25] MEDS: ATORVASTATIN 40 MG TAB PO SCH (20:17)
[2017-01-25] MEDS: ZOLPIDEM 5 MG TAB PO PRN (22:16)
[2017-01-26 00:02] VITALS: RESP 16
[2017-01-26] MEDS: SODIUM CHLORIDE 0.9% 1,000 ML IV SCH ×2 (06:12→13:39)
[2017-01-26 07:32] LABS: Basophils % (A) 0 %; CH 29.9; CHCM 30.8; Eosinophils # (A) 0.5 k/uL (0-0.7); Eosinophils % (A) 7 %; HCT 35.8 % (39.0-53.0); HDW 2.45; HGB 11.4 gm/dL (13.0-17.5); Hypochromasia Slight; Luc # (Auto) 0.17; Luc % (Auto) 2; Lymphocytes # (A) 1.5 k/uL (1.0-4.8); Lymphocytes % (A) 20 %; MCH 31.2 pg (25.0-35.0); MCHC 31.9 g/dL (31.0-37.0); MCV 97.7 fL (80.0-100.0); Mean Platelet Volume 7.1; Monocytes # (A) 0.3 k/uL (0-1.0); Monocytes % (A) 4 %; Neutrophils # (A) 4.8 k/uL (1.3-7.7); Neutrophils % (A) 66 %; RBC 3.66 m/uL (4.30-5.90); WBC 7.3 k/uL (3.8-10.6); WBC (Perox) 7.56
[2017-01-26 07:55] LABS: Calcium 9.2 mg/dL (8.4-10.2); Potassium 4.7 mmol/L (3.5-5.1)
[2017-01-26] MEDS: SODIUM BICARBONATE TAB 650 MG TAB PO SCH ×2 (09:28→20:51)
[2017-01-26] MEDS: METOPROLOL TARTRATE 50 MG TAB PO SCH ×2 (09:29→20:52)
[2017-01-26] MEDS: TAMSULOSIN 0.4 MG CAP.ER.24H PO SCH (09:29)
[2017-01-26] MEDS: PANTOPRAZOLE 40 MG TABLET PO SCH (09:29)
--- NOTE | 2017-01-26 09:44 | P.CONS ---
History of Present Illness - Reason for Consult Consult date: 01/26/17 pancreatitis Requesting physician: Jina Jackson - History of Present Illness 86-year-old male patient Dr. Sims [facility] urethral stricture disease and prostate carcinoma (1999) status post radiation admitted on 01/22 with hematuria UTI, acute renal failure elevated creatinine of 4.1. He underwent urethral stricture Marcus catheter placement. Consultation requested for pancreatitis. Admission lipase 666. LFTs normal. 3 days ago lipase increased to 739 and 1140 yesterday. Lipase today 1021. Amylase 163-205. Creatinine 2.2. Denies abdominal pain. No history of pancreatitis. No history of alcohol abuse. No changes in medications. CT abdomen and pelvis without IV contrast reported no focal defect in the liver. Gallbladder spleen appeared normal. No sign of pancreatic mass. Marcus catheter removed patient voiding with slight pink tinged hematuria. Anticipating discharged today. Review of Systems Constitutional: Denies fever, chills, sweats, weight gain, or loss. HEENT: Negative for migraines, blurred vision or loss, earaches, drainage, tinnitus, oral mucosal lesions, dysphagia, or odynophagia. Cardiac: Hyperlipidemia. CAD. Valvular heart disease with replacement. Hypertension. Negative for chest pain, arrhythmias, or palpitation. Respiratory: Negative for shortness of breath, hemoptysis, cough, or sputum production. Gastrointestinal: See HPI for pertinent findings. Genitourinary: Ureteral stricture disease. Prostate cancer. Musculoskeletal: Negative for muscle aches, swelling, arthritis, and arthralgias. Neurologic: Negative for stroke or TIA. Endocrine: Negative for thyroid problems. Skin: Negative for rash or itching. Psychiatric: Negative history for depression and anxiety All systems: negative (See HPI) Past Medical History Past Medical History: Coronary Artery Disease (CAD), Hyperlipidemia, Hypertension Additional Past Medical History / Comment(s): GOUT, Prostate Cancer. 01/22 pt comes in with hematuria and blood in stool. History of Any Multi-Drug Resistant Organisms: None Reported Past Surgical History: Appendectomy, Cardiac Valve Replacement, Joint Replacement, Prostate Surgery Additional Past Surgical History / Comment(s): rt knee Past Anesthesia/Blood Transfusion Reactions: No Reported Reaction Past Psychological History: No Psychological Hx Reported Smoking Status: Never smoker Past Alcohol Use History: None Reported Additional Past Alcohol Use History / Comment(s): pt states he has a drink every 3-4 weeks. Past Drug Use History: None Reported - Past Family History Mother Family Medical History: No Reported History Medications and Allergies Home Medications Medication Instructions Recorded Confirmed Type Acetaminophen [Tylenol] 500 mg PO Q4-6H PRN 01/22/17 01/22/17 History Allopurinol [Zyloprim] 300 mg PO DAILY 01/22/17 01/22/17 History Docusate [Colace] 100 mg PO DAILY PRN 01/22/17 01/22/17 History Losartan Potassium [Cozaar] 100 mg PO DAILY 01/22/17 01/22/17 History Metoprolol Tartrate [Lopressor] 50 mg PO HS 01/22/17 01/22/17 History Metoprolol Tartrate [Lopressor] 100 mg PO DAILY 01/22/17 01/22/17 History Naproxen Sodium [Aleve] 220 mg PO DAILY PRN 01/22/17 01/22/17 History [place]-3 Fatty Acids/Fish Oil [Fish 1 cap PO DAILY 01/22/17 01/22/17 History Oil 1,000 mg Capsule] Simvastatin [Zocor] 80 mg PO HS 01/22/17 01/22/17 History Zolpidem [Ambien] 5 mg PO HS PRN 01/22/17 01/22/17 History amLODIPine [Norvasc] 10 mg PO DAILY 01/22/17 01/22/17 History Allergies Allergy/AdvReac Type Severity Reaction Status Date / Time nut - unspecified Allergy Anaphylaxis Verified 01/25/17 10:06 Sulfa (Sulfonamide Allergy Rash/Hives Verified 01/22/17 15:00 Antibiotics) tree nut [Nut] Allergy Anaphylaxis Verified 01/25/17 10:06 Physical Exam Vitals: Vital Signs Temp Pulse Resp BP Pulse Ox 01/25/17 23:00 97.7 F 78 16 109/61 96 01/25/17 20:15 114/60 01/25/17 15:00 97.4 F L 70 18 117/74 99 Intake and Output 01/25/17 01/26/17 01/26/17 22:59 06:59 14:59 Intake Total 160 Balance 160 Intake: IV 160 Sodium Chloride 0.9% 1, 160 000 ml @ 75 mls/hr IV . [id number] [facility] Rx#:[id number] Other: Voiding Method Toilet Toilet # Voids 1 General appearance: The patient is alert, oriented, in no acute distress. HET: Head is normocephalic and atraumatic. Pupils are equal and reactive. Oropharynx is clear without lesions. Neck: Supple without lymphadenopathy. Trachea midline. Heart: S1 S2. Regular rate and rhythm. Lungs: No crackles or wheezes are heard. Abdomen: Soft, nontender, nondistended with bowel sounds. No peritoneal signs. No palpable organomegaly or masses. Extremities: Normal skin color and turgor. No cyanosis, rash, ulceration, clubbing, or edema. Radial and pedal pulses are 2/4 bilaterally. Neurological: No focal deficits. Strength and sensation are grossly intact. Results CBC & Chem 7: 01/26/17 07:14 01/26/17 07:14 Labs: Abnormal Lab Results - Last 24 Hours (Table) 01/25/17 01/25/17 Range/Units 06:53 06:53 RBC 3.54 L (4.30-5.90) m/uL Hgb 11.1 L (13.0-17.5) gm/dL Hct 34.2 L (39.0-53.0) % Chloride 111 H (98-107) mmol/L Carbon Dioxide 18 L (22-30) mmol/L BUN 31 H (9-20) mg/dL Creatinine 2.16 H (0.66-1.25) mg/dL Glucose 111 H (74-99) mg/dL Amylase 205 H (30-110) U/L Lipase 1140 H (23-300) U/L Assessment and Plan (1) Elevated amylase and lipase Narrative/Plan: 86-year-old male admitted with obstructive uropathy ureteral stricture disease status post dilation with Marcus catheter insertion and removal for hematuria. Elevated serum lipase amylase without abdominal pain or radiographic imaging suggestive of pancreatitis. Clinically asymptomatic. Status: Acute Plan: 1. Agreeable for discharge considering the patient is asymptomatic. We'll obtain CA-19-9 marker. Triglyceride level. 2. Follow up in the GI office 1-2 weeks for reevaluation with outpatient amylase lipase repeat in the next 3-5 days. Further workup will be determined based on repeat outpatient chemistries. Thank you for this kind referral and the opportunity to participate in the care of your patient. This consultation was discussed with Dr. Veliz. The impression and plan of care have been directed as dictated.
--- NOTE | 2017-01-26 10:40 | P.PN ---
Subjective Patient is seen in follow-up for acute kidney injury. Unclear as to what his baseline renal function is. Creatinine was 4.17 on admission and is improved with IV fluids. It is 2.6 today. He is also noted to have hematuria and is being followed by urology. He had a Marcus catheter placed and is now removed. He is nonoliguric. Oral intake is improving but doesn't like hospital food. No vomiting or diarrhea. Also noted to have a UTI. Urine culture positive for Aerococcus. Denies chest pain or shortness of breath. Vital signs are stable. General: The patient appeared well nourished and normally developed. HEENT: Head exam is unremarkable. Neck is without jugular venous distension. LUNGS: Lungs are clear to auscultation and percussion. Breath sounds decreased. HEART: Rate and Rhythm are regular. First and second heart sounds normal. No murmurs, rubs or gallops. ABDOMEN: Abdominal exam reveals normal bowel sounds. Non-tender and non- distended. No evidence of peritonitis. EXTREMITITES: No clubbing, cyanosis, or edema. Objective - Vital Signs Vital signs: Vital Signs Temp 97.6 F 01/26/17 07:00 Pulse 87 01/26/17 07:00 Resp 16 01/26/17 07:00 BP 126/72 01/26/17 07:00 Pulse Ox 98 01/26/17 07:00 Intake & Output 01/25/17 01/26/17 01/26/17 18:59 06:59 18:59 Intake Total 500 160 Output Total 500 Balance 0 160 Intake: IV 450 160 Sodium Chloride 0.9% 1, 450 160 000 ml @ 75 mls/hr IV . [id number] [facility] Rx#:[id number] Intake, IV Titration 50 Amount cefTRIAXone 1,000 mg In 50 Sodium Chloride 0.9% 50 ml @ 100 mls/hr IVPB Q24HR [facility] Rx#:[id number] Output: Urine 500 Uretheral (Marcus) 300 Other: Voiding Method Toilet Toilet # Voids 1 - Labs CBC & Chem 7: 01/26/17 07:14 01/26/17 07:14 Labs: Abnormal Lab Results - Last 24 Hours (Table) 01/26/17 01/26/17 Range/Units 07:14 07:14 RBC 3.66 L (4.30-5.90) m/uL Hgb 11.4 L (13.0-17.5) gm/dL Hct 35.8 L (39.0-53.0) % Chloride 110 H (98-107) mmol/L Carbon Dioxide 19 L (22-30) mmol/L BUN 29 H (9-20) mg/dL Creatinine 2.26 H (0.66-1.25) mg/dL Glucose 115 H (74-99) mg/dL Amylase 213 H (30-110) U/L Lipase 1021 H (23-300) U/L Assessment and Plan Plan: Assessment: #1. Nonoliguric acute kidney injury mostly prerenal in nature secondary to poor oral intake and use of NSAIDs and ARB. Also component of urinary retention. No evidence of hydronephrosis on CT of the abdomen/pelvis. Unclear as to what his baseline renal function is. Creatinine was 4.17 on admission and came down to 2.16. It is 2.26 today. #2. Metabolic acidosis secondary to acute kidney injury and IV fluids. Improving. #3. Hematuria. This can be related to the UTI as well as a bladder wall thickening noted on CAT scan of the abdomen and pelvis. #4. Hypertension. Blood pressures are on the lower end. Better today. #5. Urinary retention status post Marcus catheter placement and removal. Urology following. #6. UTI with urine culture positive for Aerococcus maintained on IV Rocephin. Plan: Continue normal saline to be run at 75 mL an hour. Maintain oral sodium bicarbonate 1300 mg twice daily. Continue Flomax. Avoid nephrotoxic agents and hypotensive episodes. Repeat electrolytes in the morning. Potential discharge today. He will need to follow-up as an outpatient in the next 2 weeks.
--- NOTE | 2017-01-26 14:58 | PN ---
DATE OF SERVICE: 01/24/2017 This 86-year-old gentleman admitted with acute renal failure, also had possibly a postobstructive uropathy. Dr. Pro has inserted a Marcus catheter. Some hematuria is noted. The patient had nonoliguric renal failure, possibility of prerenal factors also being considered at this time. Patient underwent ureteral dilatation, Marcus catheter insertion for and urinary retention. No chest pain, no palpitation, no fever. On exam, alert and oriented x3. Pulse 80, blood pressure 120/75, respirations 16, temperature is 97.4, pulse of 98% on room air. HEENT: Conjunctivae normal. NECK: No jugular venous distension. CARDIOVASCULAR SYSTEM: S1, S2, muffled. RESPIRATORY: Breath sounds diminished at the bases, a few scattered rhonchi, no crackles. ABDOMEN: Soft, noted mild diffuse discomfort on palpation of the abdomen. There is no guarding or rigidity, no mass palpable. LEGS: No edema, no swelling. NERVOUS SYSTEM: Higher function as mentioned, moves all 4 limbs, no focal motor deficits. LYMPHATICS: No lymph node enlargement in the neck, axillae or groin. SKIN: No ulcer, rash or bleeding. LABS: WBC is 5.3, hemoglobin is 11.7, creatinine is 2.70. The medications are Tylenol 500 mg q.4 p.r.n., Busy 5 mg q.6 p.r.n., Xanax 0.25 mg t.i.d., Lipitor 40 mg q.h.s., Rocephin 1 gm daily, Colace 100 mg daily, Dilaudid 0.25 q.6, Lopressor 50 mg q.h.s., Lopressor 100 mg p.o. daily, Narcan, Zofran, Protonix, Flomax, Restoril, Ambien. ASSESSMENT: 1. Acute renal failure, possibly nonoliguric, possibly prerenal factors with diminished p.o. intake and NSAIDS and as well as a combination of some post- obstructive element also. 2. Hematuria, possibly urinary strictures, status post dilatation and interval Marcus catheter insertion per Urology. 3. Urinary tract infection. 4. Dehydration with prerenal factors, present on admission. 5. Increased lipase, amylase, possible mild acute pancreatitis, present on admission. 6. Mild hyperkalemia present on admission. 7. Anemia, normocytic anemia of chronic disease. 8. History of aortic valve replacement. 9. History of coronary artery disease. 10. History of essential hypertension. 11. Hyperlipidemia. 12. History of gout. 13. History or prostate cancer. 14. History of appendectomy. 15. History of degenerative joint disease. 16. History of prostate surgery. 17. History of right knee surgery. 18. FULL CODE. RECOMMENDATION: In this 86-year-old gentleman who presented with multiple complex medical issues, will monitor the patient closely. Continue with the current medications and symptomatic treatment. Otherwise, at this time I would recommend to continue with the symptomatic treatment, continue with IV fluids. Closely follow with surgery. Closely follow with Urology and IV fluids and empiric antibiotics. Further recommendations to follow. MTDD
[2017-01-26] MEDS: ATORVASTATIN 40 MG TAB PO SCH (20:51)
[2017-01-26] MEDS: TEMAZEPAM 15 MG CAP PO PRN (22:09)
[2017-01-27] MEDS: SODIUM CHLORIDE 0.9% 1,000 ML IV SCH ×4 (06:08→10:16)
[2017-01-27 07:58] LABS: Basophils % (A) 1 %; CH 30.9; CHCM 31.8; Eosinophils # (A) 0.6 k/uL (0-0.7); Eosinophils % (A) 7 %; HDW 2.42; HGB 11.5 gm/dL (13.0-17.5); Luc # (Auto) 0.17; Luc % (Auto) 2; Lymphocytes # (A) 1.7 k/uL (1.0-4.8); Lymphocytes % (A) 20 %; MCH 30.4 pg (25.0-35.0); MCHC 31.1 g/dL (31.0-37.0); MCV 97.7 fL (80.0-100.0); Mean Platelet Volume 7.4; Monocytes # (A) 0.5 k/uL (0-1.0); Monocytes % (A) 6 %; Neutrophils # (A) 5.5 k/uL (1.3-7.7); Neutrophils % (A) 65 %; RBC 3.79 m/uL (4.30-5.90); WBC 8.5 k/uL (3.8-10.6); WBC (Perox) 8.73
[2017-01-27] MEDS: SODIUM BICARBONATE TAB 650 MG TAB PO SCH (08:04)
[2017-01-27] MEDS: METOPROLOL TARTRATE 50 MG TAB PO SCH (08:04)
[2017-01-27] MEDS: PANTOPRAZOLE 40 MG TABLET PO SCH (08:05)
[2017-01-27] MEDS: TAMSULOSIN 0.4 MG CAP.ER.24H PO SCH (08:05)
[2017-01-27 08:09] LABS: Calcium 9.3 mg/dL (8.4-10.2); Potassium 4.5 mmol/L (3.5-5.1)
[2017-01-27 08:24] VITALS: BP 114/74; PULSE 89; TEMP 97.5
--- NOTE | 2017-01-27 08:35 | P.PN ---
Subjective Patient is seen in follow-up for acute kidney injury. Unclear as to what his baseline renal function is. Creatinine was 4.17 on admission and is improved with IV fluids. It is stable at 2.17 today. He is also noted to have hematuria and is being followed by urology. He had a Marcus catheter placed and is now removed. He is nonoliguric. Oral intake is improving but doesn't like hospital food. No vomiting or diarrhea. Also noted to have a UTI. Urine culture positive for Aerococcus. Denies chest pain or shortness of breath. No abdominal pain. Vital signs are stable. General: The patient appeared well nourished and normally developed. HEENT: Head exam is unremarkable. Neck is without jugular venous distension. LUNGS: Lungs are clear to auscultation and percussion. Breath sounds decreased. HEART: Rate and Rhythm are regular. First and second heart sounds normal. No murmurs, rubs or gallops. ABDOMEN: Abdominal exam reveals normal bowel sounds. Non-tender and non- distended. No evidence of peritonitis. EXTREMITITES: No clubbing, cyanosis, or edema. Objective - Vital Signs Vital signs: Vital Signs Temp 97.5 F L 01/27/17 07:00 Pulse 89 01/27/17 07:00 Resp 16 01/27/17 07:00 BP 114/74 01/27/17 07:00 Pulse Ox 97 01/27/17 07:00 Intake & Output 01/26/17 01/27/17 01/27/17 18:59 06:59 18:59 Intake Total 900 Output Total 2 Balance 898 Intake: IV 900 Sodium Chloride 0.9% 1, 900 000 ml @ 75 mls/hr IV . [id number] COUNT [facility]CLUDES THE [facility] Rx#:[id number] Output: Stool 2 Other: Voiding Method Toilet Toilet # Voids 1 2 - Labs CBC & Chem 7: 01/27/17 07:46 01/27/17 07:46 Labs: Abnormal Lab Results - Last 24 Hours (Table) 01/27/17 01/27/17 Range/Units 07:46 07:46 RBC 3.79 L (4.30-5.90) m/uL Hgb 11.5 L (13.0-17.5) gm/dL Hct 37.0 L (39.0-53.0) % Chloride 109 H (98-107) mmol/L Carbon Dioxide 18 L (22-30) mmol/L BUN 27 H (9-20) mg/dL Creatinine 2.17 H (0.66-1.25) mg/dL Glucose 102 H (74-99) mg/dL Amylase 208 H (30-110) U/L Lipase 1121 H (23-300) U/L Assessment and Plan Plan: Assessment: #1. Nonoliguric acute kidney injury mostly prerenal in nature secondary to poor oral intake and use of NSAIDs and ARB. Also component of urinary retention. No evidence of hydronephrosis on CT of the abdomen/pelvis. Unclear as to what his baseline renal function is. Creatinine was 4.17 on admission and came down to 2.16. Renal function stable. #2. Metabolic acidosis secondary to acute kidney injury and IV fluids. #3. Hematuria. This can be related to the UTI as well as a bladder wall thickening noted on CAT scan of the abdomen and pelvis. #4. Hypertension. Controlled. #5. Urinary retention status post Marcus catheter placement and removal. Urology following. #6. UTI with urine culture positive for Aerococcus maintained on IV Rocephin. Plan: I will decreased rate of IV fluids to 50 mL an hour. Encourage oral intake. Maintain oral sodium bicarbonate 1300 mg twice daily. Continue Flomax. Avoid nephrotoxic agents and hypotensive episodes. Repeat electrolytes in the morning. Potential discharge to rehab today. He will need to follow-up as an outpatient in the next 2 weeks.
--- NOTE | 2017-01-27 11:09 | P.DS ---
Providers Date of admission: 01/22/17 16:55 Expected date of discharge: 01/27/17 Attending physician: Jina Owen Consults: 01/22/17 16:40 Consult Physician Stat Consulting Provider: Mayte Rodriguez Consult Reason/Comments: Renal failure Do you want consulting provider notified?: Yes 01/23/17 12:04 Consult Physician Routine Consulting Provider: Orlando Por Consult Reason/Comments: chronic outlet obstruction, retuention Do you want consulting provider notified?: Yes 01/25/17 17:35 Consult Physician Routine Consulting Provider: Konstantin Larsen Consult Reason/Comments: pancreatitis Do you want consulting provider notified?: Yes [facility] Course: Final Diagnoses: 1. Acute renal failure, possibly nonoliguric, possibly prerenal factors with diminished oral intake and NSAIDs as well as a combination of some postobstructive element also 2. Hematuria, possible urinary strictures, status post dilation and interval Marcus catheter insertion per urology 3. UTI 4. Dehydration with prerenal factors, present on admission 5. And multiple other medical issues. Hospital course: This is a 86-year-old gentleman admitted with acute renal failure, possible postobstructive uropathy, urinary retention ,status post ureteral dilatation and possible other medical issues. Evaluated by urology, nephrology,GI. Significant clinical improvement. Patient cleared for discharge by all consults. Patient is being discharged to [facility]-subacute rehab, in a stable condition with guarded prognosis. The impression and plan of care has been dictated as directed as a scribe. : I performed a H&P examination of this patient and discussed the same with the dictator. I agree with the dictator's note. Any additional findings/opinions/ etc. will be noted. Patient Condition at Discharge: Stable Plan - Discharge Summary New Discharge Prescriptions: New ALPRAZolam [Xanax] 0.25 mg PO TID PRN #20 tab PRN Reason: Anxiety HYDROcodone/APAP 5-325MG [[place] 5-325] 1 each PO Q6HR PRN #20 tab PRN Reason: moderate Pain Pantoprazole [Protonix] 40 mg PO AC-BRKFST tab Tamsulosin [Flomax] 0.4 mg PO PC-BRKFST cap Temazepam [Restoril] 15 mg PO HS PRN #20 cap PRN Reason: Insomnia Cefuroxime [Ceftin] 250 mg PO BID #10 tab Sodium Bicarbonate Tab 1,300 mg PO BID tab Continue Simvastatin [Zocor] 80 mg PO HS [place]-3 Fatty Acids/Fish Oil [Fish Oil 1,000 mg Capsule] 1 cap PO DAILY Docusate [Colace] 100 mg PO DAILY PRN PRN Reason: Constipation Acetaminophen [Tylenol] 500 mg PO Q4-6H PRN PRN Reason: Pain Metoprolol Tartrate [Lopressor] 50 mg PO HS Metoprolol Tartrate [Lopressor] 100 mg PO DAILY Zolpidem [Ambien] 5 mg PO HS PRN #20 PRN Reason: SLEEP Discontinued Naproxen Sodium [Aleve] 220 mg PO DAILY PRN PRN Reason: Pain amLODIPine [Norvasc] 10 mg PO DAILY Losartan Potassium [Cozaar] 100 mg PO DAILY Allopurinol [Zyloprim] 300 mg PO DAILY Discharge Medication List Acetaminophen [Tylenol] 500 mg PO Q4-6H PRN 01/22/17 [History] Docusate [Colace] 100 mg PO DAILY PRN 01/22/17 [History] Metoprolol Tartrate [Lopressor] 50 mg PO HS 01/22/17 [History] Metoprolol Tartrate [Lopressor] 100 mg PO DAILY 01/22/17 [History] [place]-3 Fatty Acids/Fish Oil [Fish Oil 1,000 mg Capsule] 1 cap PO DAILY [History] Simvastatin [Zocor] 80 mg PO HS 01/22/17 [History] ALPRAZolam [Xanax] 0.25 mg PO TID PRN #20 tab 01/27/17 [Rx] Cefuroxime [Ceftin] 250 mg PO BID #10 tab 01/27/17 [Rx] HYDROcodone/APAP 5-325MG [[place] 5-325] 1 each PO Q6HR PRN #20 tab 01/27/17 [Rx] Pantoprazole [Protonix] 40 mg PO AC-BRKFST tab 01/27/17 [Rx] Sodium Bicarbonate Tab 1,300 mg PO BID tab 01/27/17 [Rx] Tamsulosin [Flomax] 0.4 mg PO PC-BRKFST cap 01/27/17 [Rx] Temazepam [Restoril] 15 mg PO HS PRN #20 cap 01/27/17 [Rx] Zolpidem [Ambien] 5 mg PO HS PRN #20 01/27/17 [Rx] Follow up Appointment(s)/Referral(s): Marques Leblanc MD [REFERRING] - 3 Days (While at ECF) Orlando Pro MD [STAFF PHYSICIAN] - 1 Week (f/u in 1-2 weeks) Soo Veliz MD [STAFF PHYSICIAN] - 2 Weeks Sharan Sims DO [Primary Care Provider] - 1 Week (After discharge from ECF) Activity/Diet/Wound Care/Special Instructions: [facility] CBC,BMP in 3 days Diet: renal Discharge Disposition: TRANSFER TO SNF/ECF
--- NOTE | 2017-01-28 08:45 | PN ---
DATE OF SERVICE: 01/25/2017 This 87 year old gentleman was admitted with acute renal failure, also had hematuria. The patient had urinary Marcus catheter which was removed and the patient has been able to void without any difficulties. No chest pain. No palpitations. Creatinine is improving also. On exam, alert and oriented times two. Pulse 70. Blood pressure 170/77. Respiratory rate 18. Temperature 97.7. Pulse ox 97% on room air. HEENT: Conjunctivae normal. NECK: No JVD. CARDIAC: S1, S2 muffled. RESPIRATORY: Breath sounds diminished at the bases. No rhonchi. No crackles. ABDOMEN: Soft, nontender. LEGS: No edema. No swelling. NERVOUS SYSTEM: No focal deficits. LABS: at this time show WBC 8.8, hemoglobin 11.1. creatinine 2.26 and amylase is 205. Lipase is 1140. ASSESSMENT: 1. Acute renal failure, possibly postobstructive renal failure with acute prerenal factors. 2. Hematuria and bladder outlet obstruction status Marcus catheter. 3. Urinary tract infection, present on admission. 4. Dehydration with prerenal factors. 5. Increased lipase and amylase possible mild pancreatitis. 6. Hyperkalemia. 7. Anemia, normocytic anemia of chronic disease. 8. History of aortic valve replacement. 9. History of coronary artery disease. 10. History of essential hypertension. 11. Hyperlipidemia. 12. History of gout. 13. History of prostate cancer. 14. History of appendectomy. 15. History of degenerative joint disease. 16. History of prostate surgery. 17.History of right knee surgery. 18. FULL CODE. RECOMMENDATIONS AND DISCUSSION: Recommend to continue the current medications. Continue with monitoring, symptomatic treatment. I recommend to monitor closely. Monitor renal functions. Would also recommend amylase, lipase reevaluation. Also, I would also recommend gastroenterology evaluation also, prognosis guarded. Further recommendations to follow. MTDD
--- NOTE | 2017-01-29 07:31 | PN ---
DATE OF SERVICE: 01/26/2017 This 86-year-old gentleman who was admitted with acute renal failure, possible postobstructive uropathy, also had prerenal factors. The patient also had hematuria. The patient also had UTI. The patient had dehydration. The patient also had elevated amylase, lipase, possible pancreatitis also. The patient will be closely monitored at this time. CT scan has been reviewed. PAST MEDICAL HISTORY: Reviewed. REVIEW OF SYSTEMS: CARDIOVASCULAR: S1 and S2, muffled. RESPIRATORY: As mentioned earlier. GI: As mentioned earlier. : No dysuria. NERVOUS SYSTEM: No numbness or weakness. Current medications are reviewed and include: 1. Tylenol 500 q.4 p.r.n. 2. [place] 5 mg. 3. Xanax. 3. Lipitor. 4. Rocephin. 5. Colace. 6. Lopressor. 7. Narcan. 8. Zofran. 9. Protonix. 10. Flomax. 11. Restoril. 12. Ambien. PHYSICAL EXAM: The patient is alert and oriented x3. Pulse 75, blood pressure 104/56, respirations 16, temperature 97.6, pulse ox 98% on room air. HEENT: Conjunctivae normal. Oral mucosa moist. NECK: No jugular venous distention. No carotid bruits. No lymph node enlargement. CARDIOVASCULAR: S1 and S2. No S3, no S4. RESPIRATORY: Breath sounds diminished at the bases. A few scattered rhonchi, no crackles. ABDOMEN: Soft, nontender. No mass palpable. LEGS: No edema. NERVOUS SYSTEM: Diffusely weak. LABS: WBC 7.3, hemoglobin 11.4. Creatinine is 2.26. Amylase is 213. Lipase 1021. ASSESSMENT: 1. Acute renal failure, possibly multifactorial, nonoliguric, possibly prerenal factors and diminished p.o. intake, NSAIDs as well as combination of some postobstructive element also. 2. Hematuria, possibly urethral strictures as well as dilatation and Marcus catheter insertion and removal. 3. Urinary tract infection. 4. Acute pancreatitis of undetermined origin. 5. Dehydration, present on admission. 6. Increased amylase and lipase. 7. Mild hyperkalemia. 8. Multiple other complex medical issues. RECOMMENDATIONS AND DISCUSSION: In this 86-year-old gentleman who presented with multiple complex medical issues as mentioned earlier, I will recommend to continue current medications and symptomatic treatment. The patient will follow with nephrology. Continue with cautious hydration. Repeat labs. Amylase and lipase elevated. GI input appreciated. I also had detailed discussed without the family at the bedside and also recommended the importance of repeat CAT scan at some point. Otherwise, overall prognosis guarded. Further recommendations to follow. See orders for further details. MTDD
--- NOTE | 2017-02-02 07:04 | DS ---
This 86-year-old gentleman with a past medical history of multiple medical problems also had features of acute renal failure, hematuria. Seen and evaluated the patient along with nurse practitioner. Please refer to nurse practitioner's notes and impression documented for further information. The patient will be transferred to [facility]. Please refer to the previous dictation notes for discharge diagnoses and medications. Total time taken 34 minutes. Currently on exam, vitals are stable. CARDIOVASCULAR: S1, S2 muffed. ABDOMEN: Soft. NERVOUS SYSTEM: No focal deficit. MTDD
== END 2017-01-27 13:45 | DRG 682 ==
LOC: EC 13:43 → 5MS5E 16:55
PROVIDERS: ADMIT Internal Medicine; ATTEND Internal Medicine
PROC: 0T7D7ZZ Dilation of Urethra, Via Natural or Artificial Opening (ICD-10-PCS; principal; 2017-01-24)
DX: N17.9 Acute kidney failure, unspecified (principal); K85.90 Acute pancreatitis without necrosis or infection, unspecified; E87.2 Acidosis; E87.5 Hyperkalemia; N39.0 Urinary tract infection, site not specified; E86.0 Dehydration; R31.0 Gross hematuria; D63.8 Anemia in other chronic diseases classified elsewhere; I25.10 Atherosclerotic heart disease of native coronary artery without angina pectoris; E78.5 Hyperlipidemia, unspecified; I10 Essential (primary) hypertension; N35.9 Urethral stricture, unspecified; K64.9 Unspecified hemorrhoids; R32 Unspecified urinary incontinence; N32.0 Bladder-neck obstruction; M19.91 Primary osteoarthritis, unspecified site; M10.9 Gout, unspecified; Z92.3 Personal history of irradiation; Z85.46 Personal history of malignant neoplasm of prostate; Z95.2 Presence of prosthetic heart valve; Z90.49 Acquired absence of other specified parts of digestive tract; Z79.899 Other long term (current) drug therapy; Z88.2 Allergy status to sulfonamides
CPT/HCPCS: 36415; 71010; 74176; 80048; 80053; 81001; 82150; 82272; 82550; 82553; 83690; 83735; 84478; 84484; 85025; 85610; 85730; 86301; 86850; 86900; 86901; 87086; 93005; 96360; 99285

== ENCOUNTER 2017-05-18 04:28 | Emergency (ER) | payer MEDICARE, BC ==
[2017-05-18 05:22] LABS: Basophils % (A) 0 %; CH 31.7; Eosinophils # (A) 0.2 k/uL (0-0.7); Eosinophils % (A) 3 %; HCT 42.9 % (39.0-53.0); HDW 2.39; HGB 14.2 gm/dL (13.0-17.5); Luc # (Auto) 0.11; Luc % (Auto) 2; Lymphocytes # (A) 0.9 k/uL (1.0-4.8); Lymphocytes % (A) 18 %; MCH 33.1 pg (25.0-35.0); MCHC 33.2 g/dL (31.0-37.0); MCV 99.7 fL (80.0-100.0); Macrocytosis Slight; Mean Platelet Volume 8.5; Monocytes # (A) 0.3 k/uL (0-1.0); Monocytes % (A) 6 %; Neutrophils # (A) 3.5 k/uL (1.3-7.7); Neutrophils % (A) 70 %; RDW 14.8 % (11.5-15.5); WBC (Perox) 5.75
[2017-05-18 05:29] LABS: Glucose,Whole Blood 88 mg/dL (75-99)
--- NOTE | 2017-05-18 05:29 | XR ---
EXAM: XR Chest, 1 View CLINICAL HISTORY: Reason: fall TECHNIQUE: Frontal view of the chest. COMPARISON: 01/22/17 FINDINGS: Lungs: Slight coarse lung markings towards the lower lung zones, unchanged and likely chronic. Pleural space: Unremarkable. No pneumothorax. Heart: Unremarkable. No cardiomegaly. Mediastinum: Prominent mediastinum, unchanged likely tortuous neck vasculature Bones/joints: Status post median sternotomy. Vasculature: Calcified tortuous thoracic aorta is again seen. Tubes, lines and devices: Overlying chest leads obscure portion of the chest. IMPRESSION: No acute pulmonary disease. Stable findings as described.
[2017-05-18 05:45] LABS: Calcium 9.7 mg/dL (8.4-10.2); Potassium 4.1 mmol/L (3.5-5.1); Total Bilirubin 0.7 mg/dL (0.2-1.3); Total Protein 7.2 g/dL (6.3-8.2)
[2017-05-18 05:50] LABS: INR 1.1 (<1.2); Partial Thromboplastin Time 24.4 sec (22.0-30.0); Prothrombin Time 11.4 sec (9.0-12.0)
--- NOTE | 2017-05-18 05:50 | CT ---
EXAM: CT Head Without Intravenous Contrast CLINICAL HISTORY: Reason: fall TECHNIQUE: Axial computed tomography images of the head/brain without intravenous contrast. CTDI is 60.3 mGy and DLP is 1162.8 mGy-cm. This CT exam was performed using one or more of the following dose reduction techniques: automated exposure control, adjustment of the mA and/or kV according to patient size, and/or use of iterative reconstruction technique. COMPARISON: No relevant prior studies available. FINDINGS: Brain: Periventricular low densities. Small low densities in the region of the left anterior limb, internal capsule No hemorrhage. No edema. There is diffuse central and cortical atrophy. Ventricles: Prominent ventricles likely reflects central atrophy. Bones/joints: Unremarkable. No acute fracture. Soft tissues: Unremarkable. Vasculature: Atherosclerotic calcified intracranial ICA and visualized distal vertebral arteries bilaterally. Sinuses: Mild mucosal thickening in the ethmoid sinuses. Mastoid air cells: Mild opacification in the inferior left mastoid air cells. Other findings: IMPRESSION: No acute intracranial hemorrhage, mass effect or midline shift. Atrophy and chronic small vessel ischemic change. Chronic small lacunar infarcts. Additional findings as described above EXAM: CT Cervical Spine Without Intravenous Contrast CLINICAL HISTORY: Reason: fall TECHNIQUE: Axial computed tomography images of the cervical spine without intravenous contrast. CTDI is 17.7 mGy and DLP is 385 mGy-cm. This CT exam was performed using one or more of the following dose reduction techniques: automated exposure control, adjustment of the mA and/or kV according to patient size, and/or use of iterative reconstruction technique. COMPARISON: No relevant prior studies available. FINDINGS: Vertebrae: Mild anterior displacement of C3 with respect to C4 and C4 with respect to C5. Degenerative endplate changes seen throughout the cervical spine with endplate changes most pronounced at C6-7. No acute fracture. Discs/spinal canal/neural foramina: Disc osteophytic bulges at multiple levels. Disc osteophytic bulge, facet arthropathy with bony hypertrophy C3-4, right worse than left contributing to moderate to severe right neural foraminal narrowing. Mild to moderate spinal stenosis suspected. Mild spinal stenosis suspected at C4-5. Mild disc osteophytic bulge and facet arthropathy at C6-7 likely contributing to mild to moderate spinal stenosis. Moderate to severe bilateral neural foraminal narrowing suspected at this level. Soft tissues: Unremarkable. Vasculature: Heavily calcified atherosclerotic changes in the carotids bilaterally. Lung apices: Unremarkable as visualized. Other findings: Calcification posterior to the dens likely calcified transverse ligament. IMPRESSION: No acute bony abnormality. Multilevel degenerative disc disease. Disc osteophytic bulges and facet arthropathy with bony hypertrophy likely contributing to mild to moderate spinal stenosis at multiple levels as described. Consider further evaluation with MR to better visualize extent of disc disease.
--- NOTE | 2017-05-18 07:01 | ED ---
Fall HPI - General Chief Complaint: Fall Stated Complaint: Weakness Time Seen by Provider: 05/18/17 04:34 Source: patient, EMS Mode of arrival: EMS - History of Present Illness Initial Comments: This patient is an 87-year-old man brought to be evaluated after he had a couple of falls. The patient first roll out of bed and fell, but declined to go to the hospital after that fall. Then when he was attempting to get up and go to his walker he fell again, and EMS brought him to be evaluated. The patient states that he fell onto his hip, and he denies head injury but EMS noted an abrasion there. The patient is denying significant pain. Denies LOC. Denies neck, back, chest and abdomen pain. MD Complaint: fall -: hour(s) Fall From: standing, out of bed When Fall Occurred: 1-[address] Fall Occurred: home Loss of Consciousness: none Prolonged Down Time?: no Symptoms Prior to Fall: dizziness Location: head, other (Elbow and hip) Severity: moderate Quality: dull Context: tripped/slipped Associated Symptoms: denies - Related Data Home Medications Medication Instructions Recorded Confirmed Docusate [Colace] 100 mg PO DAILY PRN 01/22/17 05/18/17 Metoprolol Tartrate [Lopressor] 50 mg PO HS 01/22/17 05/18/17 Metoprolol Tartrate [Lopressor] 100 mg PO DAILY 01/22/17 05/18/17 [place]-3 Fatty Acids/Fish Oil [Fish 1 cap PO DAILY 01/22/17 05/18/17 Oil 1,000 mg Capsule] Simvastatin [Zocor] 80 mg PO HS 01/22/17 05/18/17 Previous Rx's Medication Instructions Recorded Tamsulosin [Flomax] 0.4 mg PO [id number] cap 01/27/17 Temazepam [Restoril] 15 mg PO HS PRN #20 cap 01/27/17 Zolpidem [Ambien] 5 mg PO HS PRN #20 01/27/17 Allergies Allergy/AdvReac Type Severity Reaction Status Date / Time nut - unspecified Allergy Anaphylaxis Verified 05/18/17 04:52 Sulfa (Sulfonamide Allergy Rash/Hives Verified 05/18/17 04:52 Antibiotics) tree nut [Nut] Allergy Anaphylaxis Verified 05/18/17 04:52 Review of Systems ROS Statement: Those systems with pertinent positive or pertinent negative responses have been documented in the HPI. ROS Other: All systems not noted in ROS Statement are negative. Constitutional: Reports: weakness Eyes: Denies: vision change Respiratory: Denies: cough, dyspnea Cardiovascular: Denies: chest pain, syncope Gastrointestinal: Denies: abdominal pain, vomiting Genitourinary: Denies: dysuria, hematuria Musculoskeletal: Denies: back pain, arthralgia Skin: Denies: rash Neurological: Reports: weakness. Denies: headache, numbness, paresthesias Past Medical History Past Medical History: Coronary Artery Disease (CAD), Hyperlipidemia, Hypertension Additional Past Medical History / Comment(s): GOUT, Prostate Cancer. 01/22 pt comes in with hematuria and blood in stool. History of Any Multi-Drug Resistant Organisms: None Reported Past Surgical History: Appendectomy, Cardiac Valve Replacement, Joint Replacement, Prostate Surgery Additional Past Surgical History / Comment(s): rt knee Past Anesthesia/Blood Transfusion Reactions: No Reported Reaction Past Psychological History: No Psychological Hx Reported Smoking Status: Never smoker Past Alcohol Use History: Occasional Past Drug Use History: None Reported - Past Family History Mother Family Medical History: No Reported History General Exam Limitations: no limitations General appearance: alert, in no apparent distress Head exam: Present: normocephalic, other (There is a scalp abrasion. No bony tenderness or deformity. No laceration requiring repair) Eye exam: Present: normal appearance. Absent: scleral icterus, conjunctival injection ENT exam: Present: normal oropharynx Neck exam: Present: normal inspection (Cervical collar), other (Bony deformity or tenderness.). Absent: tenderness Respiratory exam: Present: normal lung sounds bilaterally. Absent: respiratory distress, wheezes, rales, rhonchi, stridor, chest wall tenderness Cardiovascular Exam: Present: regular rate, irregular rhythm, normal heart sounds. Absent: systolic murmur, diastolic murmur, rubs, gallop GI/Abdominal exam: Present: soft. Absent: distended, tenderness, guarding, rebound, rigid Extremities exam: Present: normal capillary refill, other (Skin tear left elbow. ). Absent: pedal edema, calf tenderness Back exam: Present: normal inspection. Absent: CVA tenderness (R), CVA tenderness (L) Neurological exam: Present: alert, CN II-XII intact. Absent: motor sensory deficit Skin exam: Present: warm, dry, normal color. Absent: rash Course Vital Signs 05/18/17 05/18/17 05/18/17 04:31 06:54 07:33 Temperature 96.7 F L 98.1 F Pulse Rate 79 65 64 Respiratory 18 18 16 Rate Blood Pressure 169/79 172/81 170/75 O2 Sat by Pulse 96 92 L 98 Oximetry Medical Decision Making - Medical Decision Making Shouldn't is an 87-year-old man brought for evaluation after [address] of the brain and C-spine is negative. Chest x-ray negative. The patient offered admission for observation but requests discharge instead. - Lab Data Result diagrams: 05/18/17 04:45 05/18/17 04:45 Lab Results 05/18/17 05/18/17 05/18/17 Range/Units 04:45 04:45 04:45 WBC 5.0 (3.8-10.6) k/uL RBC 4.30 (4.30-5.90) m/uL Hgb 14.2 (13.0-17.5) gm/dL Hct 42.9 (39.0-53.0) % MCV 99.7 (80.0-100.0) fL MCH 33.1 (25.0-35.0) pg MCHC 33.2 (31.0-37.0) g/dL RDW 14.8 (11.5-15.5) % Plt Count 134 L (150-450) k/uL Neutrophils % 70 % Lymphocytes % 18 % Monocytes % 6 % Eosinophils % 3 % Basophils % 0 % Neutrophils # 3.5 (1.3-7.7) k/uL Lymphocytes # 0.9 L (1.0-4.8) k/uL Monocytes # 0.3 (0-1.0) k/uL Eosinophils # 0.2 (0-0.7) k/uL Basophils # 0.0 (0-0.2) k/uL Macrocytosis Slight PT (9.0-12.0) sec INR (<1.2) APTT (22.0-30.0) sec Sodium 141 (137-145) mmol/L Potassium 4.1 (3.5-5.1) mmol/L Chloride 107 (98-107) mmol/L Carbon Dioxide 24 (22-30) mmol/L Anion Gap 10 mmol/L BUN 25 H (9-20) mg/dL Creatinine 2.10 H (0.66-1.25) mg/dL Est GFR (MDRD) Af Amer 36 (>60 ml/min/1.73 sqM) Est GFR (MDRD) Non-Af 30 (>60 ml/min/1.73 sqM) Glucose 101 H (74-99) mg/dL POC Glucose (mg/dL) (75-99) mg/dL POC Glu Fire And Safety Helper ID Plasma Lactic Acid Keenan 1.1 (0.7-2.0) mmol/L Calcium 9.7 (8.4-10.2) mg/dL Total Bilirubin 0.7 (0.2-1.3) mg/dL AST 40 (17-59) U/L ALT 40 (21-72) U/L Alkaline Phosphatase 81 (38-126) U/L Total Protein 7.2 (6.3-8.2) g/dL Albumin 3.8 (3.5-5.0) g/dL 05/18/17 05/18/17 Range/Units 04:45 04:47 WBC (3.8-10.6) k/uL RBC (4.30-5.90) m/uL Hgb (13.0-17.5) gm/dL Hct (39.0-53.0) % MCV (80.0-100.0) fL MCH (25.0-35.0) pg MCHC (31.0-37.0) g/dL RDW (11.5-15.5) % Plt Count (150-450) k/uL Neutrophils % % Lymphocytes % % Monocytes % % Eosinophils % % Basophils % % Neutrophils # (1.3-7.7) k/uL Lymphocytes # (1.0-4.8) k/uL Monocytes # (0-1.0) k/uL Eosinophils # (0-0.7) k/uL Basophils # (0-0.2) k/uL Macrocytosis PT 11.4 (9.0-12.0) sec INR 1.1 (<1.2) APTT 24.4 (22.0-30.0) sec Sodium (137-145) mmol/L Potassium (3.5-5.1) mmol/L Chloride (98-107) mmol/L Carbon Dioxide (22-30) mmol/L Anion Gap mmol/L BUN (9-20) mg/dL Creatinine (0.66-1.25) mg/dL Est GFR (MDRD) Af Amer (>60 ml/min/1.73 sqM) Est GFR (MDRD) Non-Af (>60 ml/min/1.73 sqM) Glucose (74-99) mg/dL POC Glucose (mg/dL) 88 (75-99) mg/dL POC Glu Fire And Safety Helper ID Guevara Barnes Plasma Lactic Acid Keenan (0.7-2.0) mmol/L Calcium (8.4-10.2) mg/dL Total Bilirubin (0.2-1.3) mg/dL AST (17-59) U/L ALT (21-72) U/L Alkaline Phosphatase (38-126) U/L Total Protein (6.3-8.2) g/dL Albumin (3.5-5.0) g/dL - EKG Data -: EKG Interpreted by Oh EKG shows normal: axis, intervals (QRS interval normal, the QT is prolonged at 496 ms), QRS complexes Rate: normal (Approximate 90 bpm) When compared to previous EKG there are: other (Atrial fibrillation with a rate approximately 90 bpm) Interpretation: nonspecific ST-T wave changes, other Disposition Clinical Impression: Fall, Head injury Disposition: HOME SELF-CARE Condition: Fair Instructions: Fall Prevention for Older Adults (ED) Referrals: Sharan Sims DO [Primary Care Provider] - 1-2 days
[2017-05-18 07:34] VITALS: BP 170/75; PULSE 64; RESP 16; TEMP 98.1
--- NOTE | 2017-05-22 08:00 | CDI ---
Documentation Clarification OP Dear Adam Grover Please do addendum to ED report for missing HPI and Physical examination. Thank you, Jovi Wagoner Security Supervisor If you have any questions, please contact Database Modeler at [phone] [facility]
== END 2017-05-18 07:34 | disposition home or self-care (01) ==
LOC: EC 04:28
DX: S51.012A Laceration without foreign body of left elbow, initial encounter (principal); S00.01XA Abrasion of scalp, initial encounter; I25.10 Atherosclerotic heart disease of native coronary artery without angina pectoris; E78.5 Hyperlipidemia, unspecified; I10 Essential (primary) hypertension; Z85.46 Personal history of malignant neoplasm of prostate; Z79.899 Other long term (current) drug therapy; Z88.2 Allergy status to sulfonamides; Z91.018 Allergy to other foods; W06.XXXA Fall from bed, initial encounter; Y92.009 Unspecified place in unspecified non-institutional (private) residence as the place of occurrence of the external cause
CPT/HCPCS: 36415; 70450; 71010; 72125; 80053; 83605; 85025; 85610; 85730; 93005; 99284